=== PATIENT | male | born 1965 | race Caucasian/White ===

== ENCOUNTER 2024-01-01 22:35 | Inpatient (IN) ==
[2024-01-01 23:30] LABS: Alanine Aminotransferase 22 U/L (7-52); Albumin Globulin Ratio 1.3 (0.9-2); Albumin Level 4.4 gm/dl (3.4-5.0); Alkaline Phosphatase 84 U/L (34-104); Anion Gap 9 (3-11); BUN Creatinine Ratio 15.8 (10-20); Bilirubin,Total 0.5 mg/dl (0.2-1.0); Blood Urea Nitrogen 26 mg/dl (6-23); Calcium 8.7 mg/dl (8.6-10.3); Carbon Dioxide 26 mmol/L (21-32); Chloride 102 mmol/L (98-107); Est GFR (Non-African American) 45.7 ml/min; Globulin 3.3 gm/dl (2.5-4.0); Glucose 121 mg/dl (70-99(Fasting)); Sodium 137 mmol/L (136-145); Total Protein 7.7 gm/dl (6.0-8.3)
[2024-01-02 00:13] LABS: Hematocrit (blood only) 42.8 % (42.0-52.0); Hemoglobin 13.4 g/dl (14.0-18.0); Mean Corpuscular Hemoglobin 26.6 pg (25.0-34.0); Mean Corpuscular Hgb Conc 31.3 g/dL (32.0-36.0); Mean Corpuscular Volume 85.1 fL (80.0-100.0); Mean Platelet Volume 9.2 fL (9.4-12.4); Platelet Count 167 K/uL (130-400); RDW Coefficient of Variation 15.5 % (11.5-14.5); RDW Standard Deviation 47.5 fL (36.4-46.3); Red Blood Count 5.03 M/uL (4.70-6.10); White Blood Count 25.98 K/ul (4.8-10.8)
[2024-01-02 00:26] LABS: Potassium 4.5 mmol/L (3.5-5.1)
[2024-01-02 00:34] LABS: Lyme Screen Rflx Confirmation Positive (Negative); Troponin I High Sensitivity 7.8 pg/ml (0-20)
[2024-01-02 00:54] LABS: INR 1.1 (0.9-1.1); Partial Thromboplastin Time 27 Seconds (21-31); Prothrombin Time 11.4 Seconds (9.0-12.0)
[2024-01-02 01:00] LABS: Basophils # (auto) 0.06 K/uL (0.00-0.20); Basophils % (auto) 0.2 %; Eosinophils # (auto) 0.56 K/uL (0.00-0.50); Eosinophils % (auto) 2.2 %; Immature Granulocytes # (auto) 0.05 K/uL (0.01-0.20); Immature Granulocytes % (auto) 0.2 %; Lymphocytes # (auto) 18.73 K/uL (1.20-3.40); Lymphocytes % (auto) 72.1 %; Monocytes # (auto) 0.74 K/uL (0.11-0.59); Monocytes % (auto) 2.8 %; Neutrophils # (auto) 5.84 K/uL (1.40-6.50); Neutrophils % (auto) 22.5 %
[2024-01-02 01:08] LABS: Lyme Ab IgG 2nd Tier Confirm Positive (Negative); Lyme Ab IgM 2nd Tier Confirm Positive (Negative)
[2024-01-02] MEDS: KETOROLAC 30 MG/ML VIAL IV ONE (01:21)
--- NOTE | 2024-01-02 05:00 | Emergency Department Note ---
History of Present Illness General Chief complaint: Calf Pain Stated complaint: RT CALF PAIN, POSSIBLE BLOOD CLOT Time Seen by Provider: 01/01/24 22:58 History of Present Illness Maximum Pain Intensity: 10 This is a 58-year-old male presenting to the emergency department for evaluation of worsening right calf pain over the past few days. Patient does not have any significant recent travel history. 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 Jarquin locally. The patient lives in the [facility] and did have an ultrasound performed yesterday that did not show any significant findings. His pain seems to have increased and is currently rated a 10/10. He does not recall having distinct fevers or chills. He is able to ambulate. No chest pain, chest tightness, or shortness of breath. Home Medications Medication Instructions Recorded Confirmed Type aspirin 81 mg capsule 81 mg PO QAM 11/10/23 01/02/24 History atorvastatin 20 mg tablet (Lipitor) 40 mg PO HS 11/10/23 01/02/24 History clopidogrel 75 mg tablet (Plavix) 75 mg PO QAM 11/10/23 01/02/24 History empagliflozin 10 mg tablet 10 mg PO HS 11/10/23 01/02/24 History (Jardiance) fexofenadine 180 mg tablet 180 mg PO QAM 11/10/23 01/02/24 History (Radhika Allergy) furosemide 40 mg tablet (Lasix) 40 mg PO QAM 11/10/23 01/02/24 History gabapentin 300 mg tablet 300 mg PO BID 11/10/23 01/02/24 History semaglutide 1 mg/dose (4 mg/3 mL) 1 mg subcut Q7D 11/10/23 01/02/24 History subcutaneous pen injector (Ozempic) sirolimus 1 mg tablet (Rapamune) 1 mg PO BID 11/10/23 01/02/24 History spironolactone 25 mg tablet 25 mg PO HS 11/10/23 01/02/24 History cholecalciferol (vitamin D3) 50 50 mcg PO QAM 12/09/23 01/02/24 History mcg (2,000 unit) capsule (Vitamin D3) magnesium 500 mg tablet 500 mg PO QAM 12/09/23 01/02/24 History metoprolol succinate 25 mg 25 mg PO QAM 12/09/23 01/02/24 History tablet,extended release 24 hr sulfamethoxazole 400 1 tab PO QAM 12/09/23 01/02/24 History mg-trimethoprim 80 mg tablet oxycodone-acetaminophen 7.5 mg-325 1 tab PO Q8H PRN pain #7 tabs 12/22/23 01/02/24 Rx mg tablet (Percocet) phenazopyridine 200 mg tablet 200 mg PO Q8H PRN pain #10 tabs 12/22/23 01/02/24 Rx (Pyridium) tamsulosin 0.4 mg capsule 0.4 mg PO HS #30 caps 12/22/23 01/02/24 Rx Allergies Allergy/AdvReac Type Severity Reaction Status Date / Time codeine Allergy Hives Verified 01/01/24 22:43 Past Med/Surg History Problem List (Updated 01/02/24 @ 21:26 by Tru Ramirez PA-C) Bladder mass Lyme disease (Acute) Hematoma of right lower leg (Acute) CLL (chronic lymphocytic leukemia) dx ~2018 or earlier, just monitored with bloodwork; f/u dr. jarquin Epithelioid hemangioendothelioma of lung dx 08/2022, oral medication; f/u dr. jarquin Hyperlipidemia Diabetes Heart failure Arthritis Gross hematuria Hematuria Medical History History of anesthesia reaction during one of the bronchoscopes, felt like he couldn't breath while being put under the anesthesia Umbilical hernia no sx as of yet Thyroid nodule benign bx, monitored History of COVID-19 2019, [facility], transferred to [facility], not intubated; resolved Sleep apnea CPAP Hypertension Hyperlipidemia Diabetes mellitus, type 2 NIDDM Congestive heart failure Epithelioid hemangioendothelioma of lung dx 08/2022, oral medication; f/u dr. jarquin CLL (chronic lymphocytic leukemia) dx ~2019 or earlier, just monitored with bloodwork; f/u dr. jarquin Surgical History Hx of colonoscopy History of bronchoscopy x3 Call teeth extracted Hx of heart artery stent 01/2023, [facility] [place], x3 stents; f/u monie horton Hx of cardiac cath 01/2023, "legs swelling and abnormal testing," [facility] [place], x3 stents; f/u monie horton Family History Mother Diabetes Hypertension Ovarian cancer Father Hypertension Diabetes Head and neck cancer Social History Smoking Status: Never smoker Second Hand Exposure: Yes (hx); Do You Dip or Chew Tobacco: No; Hx Alcohol Use: No Hx Substance Use: No Preferred Language: Trinidadian Communication Ability: Effective Transportation Clerk Required: No Beliefs That Will Affect Care: None Current Living Situation: Spouse Feels Safe at Home: Yes Assistive Devices: Glasses Review of Systems A total of 10 systems reviewed and were otherwise negative Physical Exam Vital Signs Vital Signs - 24 hr 01/01/24 22:39 01/01/24 22:47 01/01/24 22:48 Temperature 36.7 C Temperature Source Temporal Artery Scan Pulse Rate 79 75 78 Pulse Rate from SpO2 Sensor 77 Respiratory Rate 18 17 Respiratory Effort / Characteristics Non-Labored Spontaneous Respiratory Depth Normal Respiratory Pattern Regular Blood Pressure 153/94 H 142/82 H Blood Pressure Mean 113 102 Pulse Oximetry 94 96 Oxygen Delivery Method Room Air Room Air Sepsis Recent Fever Within 48 Hours No Sepsis New/Unexplained Change in Mental Status N/A Sepsis Action Taken by Nursing No Action Required 01/01/24 23:30 01/02/24 00:12 01/02/24 00:39 Temperature Temperature Source Pulse Rate 75 80 81 Pulse Rate from SpO2 Sensor 77 82 81 Respiratory Rate 23 18 20 Respiratory Effort / Characteristics Respiratory Depth Respiratory Pattern Blood Pressure Blood Pressure Mean Pulse Oximetry 94 95 95 Oxygen Delivery Method Room Air Room Air Room Air Sepsis Recent Fever Within 48 Hours Sepsis New/Unexplained Change in Mental Status Sepsis Action Taken by Nursing 01/02/24 01:30 01/02/24 02:09 01/02/24 02:48 Temperature Temperature Source Pulse Rate 71 71 66 Pulse Rate from SpO2 Sensor 71 72 Respiratory Rate 18 19 Respiratory Effort / Characteristics Respiratory Depth Respiratory Pattern Blood Pressure 148/89 H 127/77 Blood Pressure Mean 111 93 Pulse Oximetry 96 95 Oxygen Delivery Method Room Air Sepsis Recent Fever Within 48 Hours Sepsis New/Unexplained Change in Mental Status Sepsis Action Taken by Nursing 01/02/24 03:00 01/02/24 03:30 01/02/24 04:00 Temperature Temperature Source Pulse Rate 65 67 65 Pulse Rate from SpO2 Sensor 65 64 66 Respiratory Rate 20 16 19 Respiratory Effort / Characteristics Respiratory Depth Respiratory Pattern Blood Pressure 115/80 117/73 133/79 Blood Pressure Mean 86 99 97 Pulse Oximetry 95 96 92 Oxygen Delivery Method Room Air Room Air Room Air Sepsis Recent Fever Within 48 Hours Sepsis New/Unexplained Change in Mental Status Sepsis Action Taken by Nursing 01/02/24 04:30 01/02/24 05:30 01/02/24 06:29 Temperature Temperature Source Pulse Rate 65 62 63 Pulse Rate from SpO2 Sensor 64 Respiratory Rate 18 17 Respiratory Effort / Characteristics Respiratory Depth Respiratory Pattern Blood Pressure 101/55 L 115/58 L Blood Pressure Mean 70 77 Pulse Oximetry 95 98 Oxygen Delivery Method Room Air Room Air Sepsis Recent Fever Within 48 Hours Sepsis New/Unexplained Change in Mental Status Sepsis Action Taken by Nursing 01/02/24 06:30 01/02/24 07:00 01/02/24 08:00 Temperature Temperature Source Pulse Rate 63 63 60 Pulse Rate from SpO2 Sensor 63 Respiratory Rate 17 18 Respiratory Effort / Characteristics Respiratory Depth Respiratory Pattern Blood Pressure 124/75 138/76 129/74 Blood Pressure Mean 91 92 97 Pulse Oximetry 93 95 95 Oxygen Delivery Method Room Air Room Air Room Air Sepsis Recent Fever Within 48 Hours Sepsis New/Unexplained Change in Mental Status Sepsis Action Taken by Nursing VITALS: Vitals are noted on the nurse's note and reviewed by myself. Vital signs stable. GENERAL: Well-developed, well-nourished, white male, who is in no acute distress and resting comfortably. Patient is cooperative with the examination. HEAD: Normocephalic atraumatic. NECK: Supple without nuchal rigidity. No lymphadenopathy. No thyromegaly. Cervical spine is nontender. HEART: Regular rate and rhythm without murmurs gallops or rubs. LUNGS: Clear to auscultation bilaterally without wheezes, rales or rhonchi. No retractions or accessory muscle use. ABDOMEN: Positive normal bowel sounds x 4. Soft, nontender, without masses or organomegaly. No guarding or rebound tenderness. MUSCULOSKELETAL: Erythema and edema noted primarily to the right calf which is roughly 25% larger than the left. Tenderness is posterior into the popliteal fossa. No palpable cords. Neurovascular status appears intact. Course Administered Medications Atorvastatin Calcium (Atorvastatin 20 Mg Tab) 20 mg PO HS LANNY Stop: 08/11/24 20:59 Last Admin: 01/02/24 20:09 Dose: 20 mg Documented By: ANTIONE Fexofenadine HCl (Fexofenadine Hcl 180 Mg Tab) [facility] [place] [facility] Stop: 02/01/24 08:59 Last Admin: 01/02/24 09:10 Dose: Not Given Documented By: MAURICE Furosemide (Furosemide 40 Mg Tab) [facility] [place] Stop: 02/01/24 08:59 Last Admin: 01/02/24 09:10 Dose: 40 mg Documented By: MAURICE Gabapentin (Gabapentin 300 Mg Cap) 300 mg PO BID LANNY Stop: 02/01/24 08:59 Last Admin: 01/02/24 20:09 Dose: 300 mg Documented By: Admin: 01/02/24 09:09 Dose: 300 mg Documented By: MAURICE Doxycycline Hyclate 100 mg/ (Dextrose) 100 mls @ 50 mls/hr IV Q12H LANNY Stop: 01/12/24 08:29 Last Admin: 01/02/24 20:08 Dose: 50 mls/hr Documented By: Infusion: 01/02/24 11:31 Dose: Infused Documented By: Admin: 01/02/24 09:42 Dose: 50 mls/hr Documented By: MAURICE Tamsulosin HCl (Tamsulosin Hcl 0.4 Mg Cap) 0.4 mg PO [facility] Stop: 02/01/24 20:59 Last Admin: 01/02/24 20:08 Dose: 0.4 mg Documented By: ANTIONE Vitamin D (Cholecalciferol 25 Mcg (1000 Units) Tab) 50 mcg [facility] [place] Stop: 02/01/24 08:59 Last Admin: 01/02/24 09:10 Dose: 50 mcg Documented By: MAURICE Discontinued Medications Ceftriaxone Sodium (Rocephin) 2,000 mg in 50 mls @ 100 mls/hr IV NOW STA Stop: 01/02/24 05:58 Last Infusion: 01/02/24 06:25 Dose: Infused Documented By: Admin: 01/02/24 05:56 Dose: 100 mls/hr Documented By: SRINI Vancomycin HCl 2,250 mg/ (Sodium Chloride) 545 mls @ 200 mls/hr IV NOW ONE Stop: 01/02/24 08:12 Last Infusion: 01/02/24 09:21 Dose: Infused Documented By: Admin: 01/02/24 06:24 Dose: 200 mls/hr Documented By: SRINI Ioversol (Optiray 320 100ml) 94 ml IV ONCE ONE Stop: 01/02/24 05:41 Last Admin: 01/02/24 05:41 Dose: 94 ml Documented By: JAMMIE Ketorolac Tromethamine (Ketorolac 30 Mg/Ml Vial) 30 mg IV NOW ONE Stop: 01/02/24 01:18 Last Admin: 01/02/24 01:21 Dose: 30 mg Documented By: SRINI Magnesium Oxide (Magnesium Oxide 400 Mg Tab) 500 mg PO QAM LANNY Stop: 02/01/24 08:59 Last Admin: 01/02/24 09:09 Dose: 500 mg Documented By: MAURICE Medical Decision Making Differential Diagnosis Differential diagnosis includes: Etiologies such as cellulitis, abscess, osteomyelitis, MRSA infection, DVT, necrotizing fasciitis, dermatitis, drug eruption, as well as others were entertained Laboratory Data 01/01/24 23:51 01/01/24 23:51 Lab Results 01/01/24 01/01/24 01/01/24 Range/Units 22:54 23:00 23:51 WBC Cancelled 25.98 H RBC Cancelled 5.03 Hgb Cancelled 13.4 L Hct Cancelled 42.8 MCV Cancelled 85.1 MCH Cancelled 26.6 MCHC Cancelled 31.3 L RDW Std Deviation Cancelled 47.5 H RDW Coeff of Merline Cancelled 15.5 H Plt Count Cancelled 167 MPV Cancelled 9.2 L Immature Gran % (Auto) Cancelled 0.2 Neut % (Auto) Cancelled 22.5 Lymph % (Auto) Cancelled 72.1 [place] % (Auto) Cancelled 2.8 Eos % (Auto) Cancelled 2.2 Baso % (Auto) Cancelled 0.2 Neut # (Auto) Cancelled 5.84 Lymph # (Auto) Cancelled 18.73 H [place] # (Auto) Cancelled 0.74 H Eos # (Auto) Cancelled 0.56 H Baso # (Auto) Cancelled 0.06 Immature Gran # (Auto) Cancelled 0.05 Absolute Nucleated RBC Cancelled Nucleated RBC % (auto) Cancelled Neutrophils % (Manual) Cancelled Band Neutrophils % Cancelled Lymphocytes % (Manual) Cancelled Prolymphocyte % Cancelled Reactive Lymphs % (Man) Cancelled Monocytes % (Manual) Cancelled Eosinophils % (Manual) Cancelled Basophils % (Manual) Cancelled Metamyelocytes % (Man) Cancelled Myelocytes % (Man) Cancelled Promyelocytes % (Man) Cancelled Blast Cells % (Manual) Cancelled Plasma Cell % (Manual) Cancelled Other Cells % Cancelled Nucleated RBC % Cancelled Neutrophils # (Manual) Cancelled Band Neutrophils # Cancelled Total Absolute Neuts Cancelled Lymphocytes # (Manual) Cancelled Prolymphocyte # Cancelled Reactive Lymphs # Cancelled Total Abs Lymphocytes Cancelled Monocytes # (Manual) Cancelled Eosinophils # (Manual) Cancelled Basophils # (Manual) Cancelled Metamyelocytes # (Man) Cancelled Myelocytes # (Manual) Cancelled Promyelocytes # (Man) Cancelled Blast Cells # (Man) Cancelled Plasma Cell # (Manual) Cancelled Other Cells # Cancelled Nucleated RBCs # (Man) Cancelled Hypersegmented Neuts Cancelled Hyposegmented Neuts Cancelled Hypogranular Neuts Cancelled Large Granular Lymphs Cancelled # Lrg Granular Lymphs Cancelled Hairy Cells Cancelled Smudge Cells Cancelled Toxic Granulation Cancelled Toxic Vacuolation Cancelled Dohle Bodies Cancelled Cooper Rods Cancelled Platelet Estimate Cancelled Hypogranular Platelets Cancelled Giant Platelets Cancelled Platelet Satelliting Cancelled RBC Morphology Cancelled Polychromasia Cancelled Hypochromasia Cancelled Poikilocytosis Cancelled Basophilic Stippling Cancelled Anisocytosis Cancelled Microcytosis Cancelled Macrocytosis Cancelled Spherocytes Cancelled Pappenheimer Bodies Cancelled Sickle Cells Cancelled Target Cells Cancelled Tear Drop Cells Cancelled Ovalocytes Cancelled Stomatocytes Cancelled [place] Bodies Cancelled Echinocytes Cancelled Acanthocytes (Spur) Cancelled Rouleaux Cancelled RBC Agglutinates Cancelled Schistocytes Cancelled Sezary Cell Cancelled PT Cancelled 11.4 INR Cancelled 1.1 APTT Cancelled 27 PTT Ratio Cancelled 1.0 Sodium 137 (136-145) mmol/L Potassium TNP 4.5 Chloride 102 (98-107) mmol/L Carbon Dioxide 26 (21-32) mmol/L Anion Gap 9 (3-11) BUN 26 H (6-23) mg/dl Creatinine 1.65 H (0.6-1.4) mg/dl Est Cr Clr Drug Dosing Not Reportable Est GFR ( Amer) 53.0 ml/min Est GFR (Non-Af Amer) 45.7 ml/min BUN/Creatinine Ratio 15.8 (10-20) Glucose 121 H (70-99(Fasting)) mg/dl Lactate (0.4-2.0) mmol/L Calcium 8.7 (8.6-10.3) mg/dl Total Bilirubin 0.5 (0.2-1.0) mg/dl AST TNP 20 ALT 22 (7-52) U/L Alkaline Phosphatase 84 (34-104) U/L Troponin I High Sens 7.8 (0-20) pg/ml Total Protein 7.7 (6.0-8.3) gm/dl Albumin 4.4 (3.4-5.0) gm/dl Globulin 3.3 (2.5-4.0) gm/dl Albumin/Globulin Ratio 1.3 (0.9-2) Lyme Disease Screen Positive H (Negative) Lyme Tier 2 IgG Confirm Positive H (Negative) Lyme Tier 2 IgM Confirm Positive H (Negative) Blood Parasites ID Cancelled 01/02/24 Range/Units 05:06 WBC RBC Hgb Hct MCV MCH MCHC RDW Std Deviation RDW Coeff of [place] Plt Count MPV Immature Gran % (Auto) Neut % (Auto) Lymph % (Auto) [place] % (Auto) Eos % (Auto) Baso % (Auto) Neut # (Auto) Lymph # (Auto) [place] # (Auto) Eos # (Auto) Baso # (Auto) Immature Gran # (Auto) Absolute Nucleated RBC Nucleated RBC % (auto) Neutrophils % (Manual) Band Neutrophils % Lymphocytes % (Manual) Prolymphocyte % Reactive Lymphs % (Man) Monocytes % (Manual) Eosinophils % (Manual) Basophils % (Manual) Metamyelocytes % (Man) Myelocytes % (Man) Promyelocytes % (Man) Blast Cells % (Manual) Plasma Cell % (Manual) Other Cells % Nucleated RBC % Neutrophils # (Manual) Band Neutrophils # Total Absolute Neuts Lymphocytes # (Manual) Prolymphocyte # Reactive Lymphs # Total Abs Lymphocytes Monocytes # (Manual) Eosinophils # (Manual) Basophils # (Manual) Metamyelocytes # (Man) Myelocytes # (Manual) Promyelocytes # (Man) Blast Cells # (Man) Plasma Cell # (Manual) Other Cells # Nucleated RBCs # (Man) Hypersegmented Neuts Hyposegmented Neuts Hypogranular Neuts Large Granular Lymphs # Lrg Granular Lymphs Hairy Cells Smudge Cells Toxic Granulation Toxic Vacuolation Dohle Bodies Cooper Rods Platelet Estimate Hypogranular Platelets Giant Platelets Platelet Satelliting RBC Morphology Polychromasia Hypochromasia Poikilocytosis Basophilic Stippling Anisocytosis Microcytosis Macrocytosis Spherocytes Pappenheimer Bodies Sickle Cells Target Cells Tear Drop Cells Ovalocytes Stomatocytes [place] Bodies Echinocytes Acanthocytes (Spur) Rouleaux RBC Agglutinates Schistocytes Sezary Cell PT INR APTT PTT Ratio Sodium (136-145) mmol/L Potassium Chloride (98-107) mmol/L Carbon Dioxide (21-32) mmol/L Anion Gap (3-11) BUN (6-23) mg/dl Creatinine (0.6-1.4) mg/dl Est Cr Clr Drug Dosing Est GFR ( Amer) ml/min Est GFR (Non-Af Amer) ml/min BUN/Creatinine Ratio (10-20) Glucose (70-99(Fasting)) mg/dl Lactate 1.2 (0.4-2.0) mmol/L Calcium (8.6-10.3) mg/dl Total Bilirubin (0.2-1.0) mg/dl AST ALT (7-52) U/L Alkaline Phosphatase (34-104) U/L Troponin I High Sens (0-20) pg/ml Total Protein (6.0-8.3) gm/dl Albumin (3.4-5.0) gm/dl Globulin (2.5-4.0) gm/dl Albumin/Globulin Ratio (0.9-2) Lyme Disease Screen (Negative) Lyme Tier 2 IgG Confirm (Negative) Lyme Tier 2 IgM Confirm (Negative) Blood Parasites ID Imaging Data Radiologist's Impression: Venous Doppler Study 01/02/24 00:00 Exam(s): US VENOUS RIGHT LOWER EXTREMITY EXAM: US Duplex Right Lower Extremity Veins CLINICAL HISTORY: Evaluate for Deep vein thrombosis. TECHNIQUE: Real-time duplex ultrasound scan of the right lower extremity veins integrating B-mode two-dimensional vascular structure, Doppler spectral analysis, color flow Doppler imaging and compression. COMPARISON: No relevant prior studies available. FINDINGS: Deep veins: Unremarkable. No Deep vein thrombosis in the visualized common femoral, femoral, proximal deep femoral or popliteal veins. The veins demonstrate normal color flow, are normally compressible, with normal phasic flow and/or augmentation response. Superficial veins: Unremarkable. No thrombus in the visualized great saphenous vein. Soft tissues: Nonspecific subcutaneous edema. No popliteal cyst. There is a 10.9 x 7.4 x 2.5 Cm mass of the posterior right calf with internal Doppler flow. IMPRESSION: 1. No deep vein thrombosis of the right lower extremity. 2. Nonspecific subcutaneous edema. 3. There is a 10.9 x 7.4 x 2.5 Cm mass of the posterior right calf with internal Doppler flow. This is indeterminate. Recommend further evaluation with MRI. Electronically signed by: Leigha Yuen MD 01/02/24 05:[address] 01/02/24 04:48 Exam(s): CT EXTREMITY RIGHT LOWER With Contrast IV Amt: 94 ml opti 320 EXAM: CT Right Lower Extremity With Intravenous Contrast CLINICAL HISTORY: eval for possible abscess vs other. TECHNIQUE: Axial computed tomography images of the right lower extremity with intravenous contrast. CTDI is 24.91 mGy and DLP is 1219.48 mGy-cm. Automated exposure control was utilized for the study. A dose lowering technique was utilized adhering to the principles of ALARA. CONTRAST: Patient received 94 ml opti 320 of IV contrast COMPARISON: DVT scan from earlier today. FINDINGS: Bones/joints: Unremarkable. No acute fracture. No dislocation. Soft tissues: There is a heterogeneous 3.4 x 2.2 x 14.3 cm lesion of the superior aspect of the medial head of the gastrocnemius muscle. Nonspecific subcutaneous edema. IMPRESSION: 1. There is a heterogeneous 3.4 x 2.2 x 14.3 cm lesion of the superior aspect of the medial head of the gastrocnemius muscle. This favors the appearance of a hematoma and there appears to a small amount of active bleeding. Recommend follow-up clinical exam and/or imaging to ensure resolution and exclude underlying mass. 2. Nonspecific subcutaneous edema. Electronically signed by: Leigha Yuen MD 01/02/24 06:35 AM MDM Narrative Physical exam and history were performed. Nursing notes, EMR, and Medication List were personally reviewed. No social concerns were identified as barriers to patients care. Patient appears to have pain in his right lower leg bringing him to the ER. His calf is quite large when compared to the left side. It is reddened and warm. IV access was established and labs were obtained. Patient was sent to ultrasound for imaging. Patient's blood work is as above and was reviewed. He does have a markedly elevated white blood cell count of 25,000. This does seem fairly chronic for him and is difficult to determine if this is related to his calf complaint or his CLL. He does not have significant anemia, bandemia, or gross electrolyte imbalance. INR is 1.1. He is not on blood thinners, but is on Plavix. Lyme testing is POSITIVE. Ultrasound was performed and independently reviewed by myself and radiology. There is concern as the patient has fluid in the calf, and it is difficult to determine the stability of the fluid. He does not have injury or trauma and is not on blood thinners. Blood is certainly a possibility, but so his infection. Out of concern for both patient was sent to CT scan. CT scan was also reviewed by myself and radiology, and seems to favor blood over infection at this time. Patient does have a negative lactic with blood cultures pending. I did provide him a dose of vancomycin and IV Rocephin here in the ER. Overall the patient appears to have several processes worsening the past day. The patient will require escalation of care. Case was discussed with the on-call hospitalist team who agreed to evaluate the patient here in the ER. Please see their dictation for further patient course, plan, disposition. The chart was completed utilizing [employer] Speech Voice Recognition Software. Grammatical errors, random word insertions, pronoun errors, and incomplete sentences are an occasional consequence of this system due to software limitations, ambient noise, and hardware issues. Any formal questions or concerns about the content, text, or information contained within the body of this dictation should be directly addressed to the provider for clarification. . Impression & Plan Hematoma of right lower leg, Lyme disease Discharge Plan Visit Data Chief Complaint: Calf Pain Stated Complaint: RT CALF PAIN, POSSIBLE BLOOD CLOT ED Provider: Cruz Ramirez ED Midlevel Provider: Tru Ramirez Discharge Problem: Hematoma of right lower leg, Lyme disease Patient Disposition: Admitted As Inpatient Discharge Instructions Interventions: ED Discharge Assessment Last Done: 01/02/24 11:50
--- NOTE | 2024-01-02 05:07 | Ultrasound Report ---
Exam(s): US VENOUS RIGHT LOWER EXTREMITY EXAM: US Duplex Right Lower Extremity Veins CLINICAL HISTORY: Evaluate for Deep vein thrombosis. TECHNIQUE: Real-time duplex ultrasound scan of the right lower extremity veins integrating B-mode two-dimensional vascular structure, Doppler spectral analysis, color flow Doppler imaging and compression. COMPARISON: No relevant prior studies available. FINDINGS: Deep veins: Unremarkable. No Deep vein thrombosis in the visualized common femoral, femoral, proximal deep femoral or popliteal veins. The veins demonstrate normal color flow, are normally compressible, with normal phasic flow and/or augmentation response. Superficial veins: Unremarkable. No thrombus in the visualized great saphenous vein. Soft tissues: Nonspecific subcutaneous edema. No popliteal cyst. There is a 10.9 x 7.4 x 2.5 Cm mass of the posterior right calf with internal Doppler flow. IMPRESSION: 1. No deep vein thrombosis of the right lower extremity. 2. Nonspecific subcutaneous edema. 3. There is a 10.9 x 7.4 x 2.5 Cm mass of the posterior right calf with internal Doppler flow. This is indeterminate. Recommend further evaluation with MRI. Electronically signed by: Leigha Yuen MD 01/02/24 05:07 AM
[2024-01-02] MEDS ORDERED: VANCOMYCIN CONSULT ACTIVE PRN (05:29)
[2024-01-02] MEDS: OPTIRAY 320 100ml IV ONE (05:41)
[2024-01-02] MEDS: cefTRIAXone SODIUM 2,000 MG/50 ML BAG IV STA (05:56)
[2024-01-02] MEDS: VANCOMYCIN HCL 2,250 MG in SODIUM CHLORIDE 0.9% 500 ML IV ONE (06:24)
--- NOTE | 2024-01-02 06:36 | CT Scan Report ---
Exam(s): CT EXTREMITY RIGHT LOWER With Contrast IV Amt: 94 ml opti 320 EXAM: CT Right Lower Extremity With Intravenous Contrast CLINICAL HISTORY: eval for possible abscess vs other. TECHNIQUE: Axial computed tomography images of the right lower extremity with intravenous contrast. CTDI is 24.91 mGy and DLP is 1219.48 mGy-cm. Automated exposure control was utilized for the study. A dose lowering technique was utilized adhering to the principles of ALARA. CONTRAST: Patient received 94 ml opti 320 of IV contrast COMPARISON: DVT scan from earlier today. FINDINGS: Bones/joints: Unremarkable. No acute fracture. No dislocation. Soft tissues: There is a heterogeneous 3.4 x 2.2 x 14.3 cm lesion of the superior aspect of the medial head of the gastrocnemius muscle. Nonspecific subcutaneous edema. IMPRESSION: 1. There is a heterogeneous 3.4 x 2.2 x 14.3 cm lesion of the superior aspect of the medial head of the gastrocnemius muscle. This favors the appearance of a hematoma and there appears to a small amount of active bleeding. Recommend follow-up clinical exam and/or imaging to ensure resolution and exclude underlying mass. 2. Nonspecific subcutaneous edema. Electronically signed by: Leigha Yuen MD 01/02/24 06:35 AM
[2024-01-02] MEDS ORDERED: oxyCODONE/APAP 7.5/325MG TAB PO PRN (08:20)
[2024-01-02] MEDS: GABAPENTIN 300 MG CAP PO SCH (09:09)
[2024-01-02] MEDS: MAGNESIUM OXIDE 400 MG TAB PO SCH (09:09)
[2024-01-02] MEDS: FUROSEMIDE 40 MG TAB PO SCH (09:10)
[2024-01-02] MEDS: CHOLECALCIFEROL 25 MCG (1000 UNITS) TAB PO SCH (09:10)
[2024-01-02] MEDS: FEXOFENADINE HCL 180 MG TAB PO SCH (09:10)
[2024-01-02] MEDS: DOXYCYCLINE HYCLATE 100 MG in DEXTROSE 5% MINI-B 100 ML IV SCH (09:42)
--- NOTE | 2024-01-02 10:49 | History & Physical Report ---
Date of Service January 02, 2024 Assessment & Plan (1) Hematoma of right lower leg: Plan: Patient presents to the hospital with right calf pain was started 3 days prior to presentation CT showed evidence of a hematoma with possible active bleed. Will monitor for worsening pain, no evidence of compartment syndrome for now Will repeat CT tomorrow Monitor H&H (2) CLL (chronic lymphocytic leukemia): Plan: Incidentally found on blood work Continue to monitor for now Currently on no treatment (3) Lyme disease: Plan: Patient admits that he usually [facility] However denies any knowledge of recent tick bite Lyme disease positive Started on doxycycline IV Transition to p.o. upon discharge (4) Epithelioid hemangioendothelioma of lung: Plan: Follows up with Dr. Morris On sirolimus, however will hold on account of worsening renal function (5) Bladder mass: Plan: Underwent TURBT a few days ago Continue to monitor Plan Admit to [facility] with telemetry Full code Admission and Anticipated Discharge Date Admission Date: January 02, 2024 History of Present Illness Chief Complaint: Right calf pain Primary Care Provider: Stanford Farnsworth PA-C This is a 58-year-old male with a history of CLL, epithelioid hemangioendothelioma, bladder tumor status post TURBT, who came to the emergency department today on account of worsening right calf pain. According to the patient, the pain started about 3 days prior to presentation. He presented to a local walk-in clinic where they did an ultrasound which did not show any c oncerning changes. The pain persisted now with worsening swelling so he came to the emergency department for further evaluation. Here in the emergency department if venous Doppler was repeated we did not show any evidence of DVT but only showed some nonspecific subcutaneous edema and did 10 x 7 x 2 cm mass in the posterior right calf. This prompted a CT scan with contrast which now showed heterogeneous 3 x 2 x 14 cm lesion in the superior aspect of the medial head of the gastrocnemius favoring hematoma. There also appeared to be a small amount of active bleeding. His calf was wrapped up by the emergency department And he will be admitted to the hospital further management. Of note, his Lyme was also found to be positive. Allergies Allergy/AdvReac Type Severity Reaction Status Date / Time codeine Allergy Hives Verified 01/01/24 22:43 Home Medications Medication Instructions Recorded Confirmed Type aspirin 81 mg capsule 81 mg PO QAM 11/10/23 01/02/24 History atorvastatin 20 mg tablet (Lipitor) 40 mg PO HS 11/10/23 01/02/24 History clopidogrel 75 mg tablet (Plavix) 75 mg PO QAM 11/10/23 01/02/24 History empagliflozin 10 mg tablet 10 mg PO HS 11/10/23 01/02/24 History (Jardiance) fexofenadine 180 mg tablet 180 mg PO QAM 11/10/23 01/02/24 History (Radhika Allergy) furosemide 40 mg tablet (Lasix) 40 mg PO QAM 11/10/23 01/02/24 History gabapentin 300 mg tablet 300 mg PO BID 11/10/23 01/02/24 History semaglutide 1 mg/dose (4 mg/3 mL) 1 mg subcut Q7D 11/10/23 01/02/24 History subcutaneous pen injector (Ozempic) sirolimus 1 mg tablet (Rapamune) 1 mg PO BID 11/10/23 01/02/24 History spironolactone 25 mg tablet 25 mg PO HS 11/10/23 01/02/24 History cholecalciferol (vitamin D3) 50 50 mcg PO QAM 12/09/23 01/02/24 History mcg (2,000 unit) capsule (Vitamin D3) magnesium 500 mg tablet 500 mg PO QAM 12/09/23 01/02/24 History metoprolol succinate 25 mg 25 mg PO QAM 12/09/23 01/02/24 History tablet,extended release 24 hr sulfamethoxazole 400 1 tab PO QAM 12/09/23 01/02/24 History mg-trimethoprim 80 mg tablet oxycodone-acetaminophen 7.5 mg-325 1 tab PO Q8H PRN pain #7 tabs 12/22/23 01/02/24 Rx mg tablet (Percocet) phenazopyridine 200 mg tablet 200 mg PO Q8H PRN pain #10 tabs 12/22/23 01/02/24 Rx (Pyridium) tamsulosin 0.4 mg capsule 0.4 mg PO HS #30 caps 12/22/23 01/02/24 Rx Past Med/Surg History Problem List (Updated 01/02/24 @ 10:47 by Doyle Sosa MD) Bladder mass Lyme disease Hematoma of right lower leg CLL (chronic lymphocytic leukemia) dx ~2019 or earlier, just monitored with bloodwork; f/u dr. chappell Epithelioid hemangioendothelioma of lung dx 08/2022, oral medication; f/u dr. chappell Hyperlipidemia Diabetes Heart failure Arthritis Gross hematuria Hematuria Medical History History of anesthesia reaction during one of the bronchoscopes, felt like he couldn't breath while being put under the anesthesia Umbilical hernia no sx as of yet Thyroid nodule benign bx, monitored History of COVID-19 2019, ph [facility], transferred to [facility], not intubated; resolved Sleep apnea CPAP Hypertension Hyperlipidemia Diabetes mellitus, type 2 NIDDM Congestive heart failure Epithelioid hemangioendothelioma of lung dx 08/2022, oral medication; f/u dr. chappell CLL (chronic lymphocytic leukemia) dx ~2019 or earlier, just monitored with bloodwork; f/u dr. chappell Surgical History Hx of colonoscopy History of bronchoscopy x3 [place] teeth extracted Hx of heart artery stent 01/2023, [facility] [place], x3 stents; f/u monie horton Hx of cardiac cath 01/2023, "legs swelling and abnormal testing," [facility] [place], x3 stents; f/u monie horton Family History Mother Diabetes Hypertension Ovarian cancer Father Hypertension Diabetes Head and neck cancer Social History Smoking Status: Never smoker Second Hand Exposure: Yes (hx); Do You Dip or Chew Tobacco: No; Hx Alcohol Use: No Hx Substance Use: No Preferred Language: [place] Communication Ability: Effective Limnology Teacher Required: No Beliefs That Will Affect Care: None Current Living Situation: Spouse Feels Safe at Home: Yes Safety Concerns: Feels Safe At This Time Assistive Devices: Glasses Review of Systems Review of Systems: All systems reviewed are negative, apart from the ones contained in the history. Physical Exam Physical Exam: The patient is awake, alert and oriented 3, well developed and well nourished, normocephalic and atraumatic, lying in bed and in no acute distress. HEENT--PERRL, EOMI, mucous membranes and oropharynx mildly dry Neck--supple. No JVD. No bruits. Thyroid normal, trachea midline, no adenopathy. Heart--normal S1 and S2. No murmurs, rubs or gallops. Lungs--clear bilaterally, no respiratory distress, no accessory muscle use. Abdomen--normal bowel sounds and soft. Extremities--no cyanosis or clubbing. No edema.Right calf tenderness and swelling Dermatologic--normal skin turgor, normal color, no abnormal lymph nodes, no rash. Neurologic--cranial nerves II through XII grossly intact. Rheumatologic--normal range of motion. Psychiatric--normal affect. Results & Data Results & Data Vital Signs (Past 12 Hours) Vital Signs Pulse Resp BP Pulse Ox O2 Del Method 01/02/24 09:01 67 16 129/66 96 Room Air 01/02/24 08:30 59 L 18 135/82 95 Room Air 01/02/24 08:00 60 18 129/74 95 Room Air 01/02/24 07:00 63 138/76 95 Room Air 01/02/24 06:30 63 17 124/75 93 Room Air 01/02/24 06:29 63 01/02/24 05:30 62 17 115/58 L 98 Room Air 01/02/24 04:30 65 18 101/55 L 95 Room Air 01/02/24 04:00 65 19 133/79 92 Room Air 01/02/24 03:30 67 16 117/73 96 Room Air 01/02/24 03:00 65 20 115/80 95 Room Air 01/02/24 02:48 66 01/02/24 02:09 71 19 127/77 95 Room Air 01/02/24 01:30 71 18 148/89 H 96 01/02/24 00:39 81 20 95 Room Air 01/02/24 00:12 80 18 95 Room Air 01/01/24 23:30 75 23 94 Room Air 01/01/24 22:48 78 17 142/82 H 96 Room Air 01/01/24 22:47 75 PG Care Time/CCT Total # of Minutes Spent Total Time Spent with Patient: Total time spent is greater than 50% in coordination of care (as documented) at patient's floor/unit and/or counseling patient: Coding Level of Care Code 79334 INT INP/OBS CARE MIN Diagnoses Hematoma of right lower leg S80.11XA CLL (chronic lymphocytic leukemia) C91.10 Lyme disease A69.20 Epithelioid hemangioendothelioma of lung D38.1 Bladder mass N32.89 Time Spent (min) 75
--- NOTE | 2024-01-02 12:52 | Electrocardiogram Report ---
Test Reason : Blood Pressure : / mmHG Vent. Rate : 075 BPM Atrial Rate : 075 BPM P-R Int : 210 ms QRS Dur : 106 ms QT Int : 402 ms P-R-T Axes : 043 -31 039 degrees QTc Int : 448 ms Sinus rhythm with 1st degree A-V block Left axis deviation Abnormal ECG No previous ECGs available Confirmed by Gustavo Cuevas ([id number]) on 01/02/2024 12:52:00 PM Referred By: REFERRED SELF Confirmed By:Narciso Cuevas
[2024-01-02] MEDS: TAMSULOSIN HCL 0.4 MG CAP PO SCH (20:08)
[2024-01-02] MEDS: ATORVASTATIN 20 MG TAB PO SCH (20:09)
[2024-01-03 02:19] LABS: A calco-baum cmplx NotReported Not Detected (NotDetected); Bact fragilis Not Reported Not Detected (NotDetected); Blood Culture Id Panel See PCR Comment (NotDetected); C auris Not Reported Not Detected (NotDetected); Calbicans Not Reported Not Detected (NotDetected); Candida glabrata Not Reported Not Detected (NotDetected); Candida krusei Not Reported Not Detected (NotDetected); Cneoformans/gatti Not Reported Not Detected (NotDetected); Cparapsilosis Not Reported Not Detected (NotDetected); E cloacae compx Not Reported Not Detected (NotDetected); Efaecalis Not Reported Not Detected (NotDetected); Efaecium Not Reported Not Detected (NotDetected); Enterobacterales Not Reported Not Detected (NotDetected); Escherichia coli Not Reported Not Detected (NotDetected); H influenzae Not Reported Not Detected (NotDetected); K aerogenes Not Reported Not Detected (NotDetected); Koxytoca Not Reported Not Detected (NotDetected); Kpneumoniae grp Not Reported Not Detected (NotDetected); Lmonocyt Not Reported Not Detected (NotDetected); N meningitidis Not Reported Not Detected (NotDetected); P aeruginosa Not Reported Not Detected (NotDetected); Proteus spp Not Reported Not Detected (NotDetected); Salmonella spp Not Reported Not Detected (NotDetected); Staph lugdunensis Not Reported Not Detected (NotDetected); Staphaureus Not Reported Not Detected (NotDetected); Staphepi Not Reported DETECTED (NotDetected); Staphylococcus spp. DETECTED (NotDetected); Stenmaltophilia Not Reported Not Detected (NotDetected); Strep agal(GrpB) Not Reported Not Detected (NotDetected); Strep pneum Not Reported Not Detected (NotDetected); Strep pyog (GrpA) Not Reported Not Detected (NotDetected); Strep spp Not Reported Not Detected (NotDetected)
[2024-01-03 02:33] LABS: Staph spp. Not Reported DETECTED (NotDetected); Staphylococcus epidermidis DETECTED (NotDetected); mecAC Resistant Gene DETECTED (NotDetected)
[2024-01-03] MEDS ORDERED: VANCOMYCIN CONSULT ACTIVE PRN (02:47)
--- NOTE | 2024-01-03 02:54 | Communication Note ---
Date of Service: January 03, 2024 Notified by nursing ~2:30AM of positive blood cultures. Pt growing gram pos cocci in 1/4 bottles (in <24 hrs). PCR showing staph species/staph epidermidis w / methicillin resistance gene. Although this could represent a contaminant, pt has multiple reasons making him immunocompromised (CLL, epithelioid hemangioendothelioma) so will start vancomycin for coverage. Recommend waiting for further growth of other culture bottles to assess whether this represents contamination or true infection and thus whether antibiotics should be continued or not. Resident Activity Tracking Resident Involvement: Resident Care Provided Care Provided: Adult Hospital Medicine
[2024-01-03] MEDS: VANCOMYCIN HCL 1,750 MG in SODIUM CHLORIDE 0.9% 500 ML IV SCH (03:16)
[2024-01-03 04:17] LABS: Hematocrit (blood only) 38.7 % (42.0-52.0); Hemoglobin 12.2 g/dl (14.0-18.0); Mean Corpuscular Hemoglobin 26.9 pg (25.0-34.0); Mean Corpuscular Hgb Conc 31.5 g/dL (32.0-36.0); Mean Corpuscular Volume 85.4 fL (80.0-100.0); Mean Platelet Volume 9.7 fL (9.4-12.4); Platelet Count 158 K/uL (130-400); RDW Coefficient of Variation 15.3 % (11.5-14.5); RDW Standard Deviation 47.3 fL (36.4-46.3); Red Blood Count 4.53 M/uL (4.70-6.10); White Blood Count 18.49 K/ul (4.8-10.8)
[2024-01-03 04:34] LABS: Est GFR (African American) 52.6 ml/min; Potassium 4.5 mmol/L (3.5-5.1)
[2024-01-03 04:35] LABS: BUN Creatinine Ratio 14.5 (10-20); Calcium 8.3 mg/dl (8.6-10.3); Creatinine Clr Calc Pharmacy 60.5 ml/min; Est GFR (Non-African American) 45.4 ml/min
[2024-01-03] MEDS: MAGNESIUM OXIDE 400 MG TAB PO SCH (08:28)
--- NOTE | 2024-01-03 11:15 | Pharmacy Report ---
Pharmacy PK ABX Note - Date of Service January 03, 2024 - Assessment and Plan Assessment 58 year old M with PMH including CLL, epitheloid hemangioendothelioma, bladder tumor post TURBT receiving vancomcyin for treatment of MRSE 2/4 (same set) in blood cultures. Possible contaminant- monitoring second set for now, negative at 24 hours. Also on doxycycline for positive Lyme screen. Initial WBC 25.98 downtrending, (however in setting of chronic elevation, CLL). Afebrile. Plan Vancomycin * Loading dose: 2250 mg IV x 1 * Maintenance dose: 1750 mg IV every 24 hours * Regimen is predicted to achieve target AUC/SHERICE of 400-600 mg/L.hr * Random level to be ordered if continued > 48 hours Pharmacy will continue to follow and will adjust dose/frequency as necessary. Thank you. Pharmacy has transitioned to AUC monitoring for vancomycin. AUC/SHERICE is the pr eferred PK/PD target and is associated with decreased risk of nephrotoxicity compared to traditional trough targets.
--- NOTE | 2024-01-03 11:37 | Hospitalist Progress Note ---
Date of Service January 03, 2024 Assessment & Plan (1) Hematoma of right lower leg: Plan: Patient presents to the hospital with right calf pain was started 3 days prior to presentation On admission,CT showed evidence of a hematoma with possible active bleed. Repeat CT scan has been ordered today, results pending Continue to monitor H&H which has been stable (2) Bacteremia: Plan: 2 out of 4 bottles growing gram-positive's in clusters Empirically started on IV vancomycin Will obtain 2D echo (3) CLL (chronic lymphocytic leukemia): Plan: Incidentally found on blood work Continue to monitor for now Currently on no treatment (4) Lyme disease: Plan: Patient admits that he usually goes to the [facility] However denies any knowledge of recent tick bite Lyme disease positive Started on doxycycline IV Transition to p.o. upon discharge (5) Epithelioid hemangioendothelioma of lung: Plan: Follows up with Dr. Jarquin On sirolimus, however will hold on account of worsening renal function (6) Bladder mass: Plan: Underwent TURBT a few days ago Continue to monitor Plan Continue to monitor, await full characterization of blood cultures Full code Admission and Anticipated Discharge Date Admission Date: January 02, 2024 Subjective Patient seen and examined, states his pain is much better, awaiting repeat CT Review of Systems Review of Systems: All systems reviewed are negative, apart from the ones contained in the history. Physical Exam Physical Exam: The patient is awake, alert and oriented 3, well developed and well nourished, normocephalic and atraumatic, lying in bed and in no acute distress. HEENT--PERRL, EOMI, mucous membranes and oropharynx mildly dry Neck--supple. No JVD. No bruits. Thyroid normal, trachea midline, no adenopathy. Heart--normal S1 and S2. No murmurs, rubs or gallops. Lungs--clear bilaterally, no respiratory distress, no accessory muscle use. Abdomen--normal bowel sounds and soft. Extremities--no cyanosis or clubbing. No edema.Right calf tenderness and swelling Dermatologic--normal skin turgor, normal color, no abnormal lymph nodes, no rash. Neurologic--cranial nerves II through XII grossly intact. Rheumatologic--normal range of motion. Psychiatric--normal affect. Results & Data Results & Data Vital Signs (Past 12 Hours) Vital Signs Temp Pulse Pulse Pulse Resp BP BP 07/13/24 11:20 97.9 F 73 18 123/76 01/03/24 07:37 82 01/03/24 07:20 97.5 F L 72 18 110/69 01/03/24 03:39 97.5 F L 72 20 122/70 Pulse Ox O2 Del Method 01/03/24 11:20 95 Room Air 01/03/24 07:37 01/03/24 07:20 94 Room Air 01/03/24 03:39 96 CPAP PG Care Time/CCT Total # of Minutes Spent Total Time Spent with Patient: Total time spent is greater than 50% in coordination of care (as documented) at patient's floor/unit and/or counseling patient: Coding Level of Care Code 11970 SUB INP/OBS CARE 2/35MIN Diagnoses Hematoma of right lower leg S80.11XA Bacteremia R78.81 CLL (chronic lymphocytic leukemia) C91.10 Lyme disease A69.20 Epithelioid hemangioendothelioma of lung D38.1 Bladder mass N32.89 Time Spent (min) 35
--- NOTE | 2024-01-03 17:11 | CT Scan Report ---
CT SCAN OF THE RIGHT TIBIA AND FIBULA WITHOUT IV CONTRAST CLINICAL HISTORY: Follow-up hematoma. COMPARISON STUDY: CT scan of the right tibia and fibula dated 01/02/2024. TECHNIQUE: CT scan of the right tibia and fibula is performed from the distal femur to the ankle. Joann ges are reviewed in the axial, sagittal, and coronal planes. IV contrast was not administered for thi s examination. A dose lowering technique was utilized adhering to the principles of ALARA. CT DOSE: 1169.25 mGy.cm FINDINGS: The skeletal structures are osteopenic. There is no evidence of right tibial or fibular fra cture. The knee and ankle joints are grossly maintained. There is a moderate knee joint effusion. No osteochondral defect is seen in the talar dome. Soft tissue edema and subcutaneous fluid is present t hroughout the left calf. Again seen is an intramuscular hematoma within the medial head of the gastro cnemius muscle. This is best seen on axial image #237 and measures approximately 16 x 6 x 2 cm in agg regate dimension. This is similar in appearance to yesterday. There is atherosclerotic calcification of the regional arteries. There is mild generalized atrophy of the regional musculature. The Achilles tendon is intact as imaged. IMPRESSION: 1. No acute bony abnormality is seen involving the left tibia or fibula. 2. An intramuscular hematoma is again seen within the medial head of the gastrocnemius muscle. This h as not appreciably changed from yesterday. ACT 112: Negative or not required by law. Dictated: 01/03/2024 9:16 AM Transcribed: 01/03/2024 9:48 AM Kobi [id number] MICH_Deacon [id number] Electronically signed by: Elder Navarrete M.D. 01/03/2024 5:09 PM
[2024-01-03 21:34] LABS: Hemoglobin 12.8 g/dl (14.0-18.0); Mean Corpuscular Hemoglobin 26.6 pg (25.0-34.0); Mean Corpuscular Hgb Conc 31.2 g/dL (32.0-36.0); Mean Corpuscular Volume 85.1 fL (80.0-100.0); Mean Platelet Volume 9.3 fL (9.4-12.4); Platelet Count 179 K/uL (130-400); RDW Coefficient of Variation 15.3 % (11.5-14.5); RDW Standard Deviation 46.9 fL (36.4-46.3); Red Blood Count 4.82 M/uL (4.70-6.10); White Blood Count 23.68 K/ul (4.8-10.8)
[2024-01-03 21:48] LABS: Albumin Globulin Ratio 1.4 (0.9-2); Albumin Level 4.2 gm/dl (3.4-5.0); BUN Creatinine Ratio 16.5 (10-20); Bilirubin,Total 0.5 mg/dl (0.2-1.0); Calcium 9.5 mg/dl (8.6-10.3); Creatinine Clr Calc Pharmacy 75.5 ml/min; Est GFR (African American) 68.8 ml/min; Est GFR (Non-African American) 59.3 ml/min; Magnesium 2.1 mg/dl (1.7-2.4); Potassium 4.3 mmol/L (3.5-5.1); Total Protein 7.2 gm/dl (6.0-8.3)
--- NOTE | 2024-01-04 01:15 | Communication Note ---
Date of Service: January 04, 2024 Notified by nursing of patient's persistently elevated heart rate (110-120). Rhythm remaining NSR. Patient asymptomatic. Obtained CXR, CBC, and CMP. Hemoglobin remains stable, though WBC rising. Patient remains on Vancomycin for gram positive bacteremia. Creatinine downtrending, diuretic ongoing. No active fluids. Magnesium and Potassium levels wnl. CXR obtained w/o focal consolidation. Plan: - Patient noted to be immunocompromised by CLL and recently underwent TURBT - Patient with MRSA will require Echocardiogram to rule out endocarditis. Ordered. - Will continue Vancomycin at this time for MRSA bacteremia while investigation for primary source ongoing CXR Obtained Echocardiogram ordered. Urinalysis ordered. - Would consider ID consult during day shift. Resident Activity Tracking Resident Involvement: Resident Care Provided Care Provided: Adult Hospital Medicine
[2024-01-04 06:16] LABS: Hemoglobin 11.8 g/dl (14.0-18.0); Mean Corpuscular Hemoglobin 26.6 pg (25.0-34.0); Mean Corpuscular Hgb Conc 31.1 g/dL (32.0-36.0); Mean Corpuscular Volume 85.8 fL (80.0-100.0); Mean Platelet Volume 9.8 fL (9.4-12.4); Platelet Count 181 K/uL (130-400); RDW Coefficient of Variation 15.4 % (11.5-14.5); Red Blood Count 4.43 M/uL (4.70-6.10); White Blood Count 22.51 K/ul (4.8-10.8)
[2024-01-04 06:32] LABS: BUN Creatinine Ratio 16.3 (10-20); Creatinine Clr Calc Pharmacy 77.8 ml/min; Est GFR (African American) 71.4 ml/min; Est GFR (Non-African American) 61.6 ml/min; Potassium 4.5 mmol/L (3.5-5.1)
[2024-01-04 06:36] LABS: Appearance Urine Cloudy (Clear); Bacteria Urine Automated None Seen (None Seen); Bilirubin Urine Negative (Negative); Blood Urine 3+ (Negative); Cast Urine Automated 0-2 /lpf (0-2); Color Urine Yellow; Epithelial Cell Urine Auto 0-2 /hpf (0-2); Glucose Urine UA 3+ (Negative); Ketones Urine Negative (Negative); Leukocyte Esterase Urine Negative (Negative); Nitrite Urine Negative (Negative); Protein Urine 1+ (Negative); RBC Urine Automated >20 /hpf (0-2); Specific Gravity Urine 1.033 (1.000-1.030); Urobilinogen Urine Negative (Negative); pH Urine 5.5 (4.5-7.5)
[2024-01-04] MEDS: SIROLIMUS 0.5 MG TABLET PO SCH (08:30)
[2024-01-04] MEDS: METOPROLOL SUCC 25MG EXT REL TAB PO SCH (08:30)
--- NOTE | 2024-01-04 08:41 | XRay Report ---
XR chest 1V portable HISTORY: Tachycardia. COMPARISON: Chest CT 11/06/2023. FINDINGS: No pneumothorax. No pleural effusions. There are low lung volumes. The cardiac silhouette r emains mildly enlarged. Innumerable bilateral pulmonary nodules are again noted. No new focal lung co nsolidations. No evidence for pulmonary edema. IMPRESSION: 1. Innumerable bilateral pulmonary nodules again noted. 2. Stable mild cardiomegaly. ACT 112: Negative or not required by law. Electronically signed by: Noble Richards M.D. 01/04/2024 8:40 AM
--- NOTE | 2024-01-04 11:25 | Pharmacy Report ---
Pharmacy PK ABX Note - Date of Service January 04, 2024 - Assessment and Plan Assessment 01/03 * SCr 1.66 --> 1.29 today. Blood culture updated to coag negative staph no lugdenesis (MRSE) on biofire. Second second is negative at 48 hours. Patient with some tachycardia overnight. Remains afebrile. Urine culture pending. 01/02 58 year old M with PMH including CLL, epitheloid hemangioendothelioma, bladder tumor post TURBT receiving vancomcyin for treatment of MRSE 2/4 (same set) in blood cultures. Possible contaminant- monitoring second set for now, negative at 24 hours. Also on doxycycline for positive Lyme screen. Initial WBC 25.98 downtrending, (however in setting of chronic elevation, CLL). Afebrile. Plan Vancomycin * Loading dose: 2250 mg IV x 1 * Maintenance dose: 1750 mg IV every 24 hours * Current regimen is predicted to achieve target AUC/SHERICE of 400-600 mg/L.hr however with lower probability * Given bacteremia source, will adjust to 1750 mg q18H * Random level ordered for 01/04 @ 1200 Pharmacy will continue to follow and will adjust dose/frequency as necessary. Thank you. Pharmacy has transitioned to AUC monitoring for vancomycin. AUC/SHERICE is the preferred PK/PD target and is associated with decreased risk of nephrotoxicity compared to traditional trough targets.
--- NOTE | 2024-01-04 11:52 | Hospitalist Progress Note ---
Date of Service January 04, 2024 Assessment & Plan (1) Hematoma of right lower leg: Plan: Patient presents to the hospital with right calf pain was started 3 days prior to presentation On admission,CT showed evidence of a hematoma with possible active bleed. Repeat CT scan Showed stable hematoma Continue to monitor H&H which has been stable (2) Bacteremia: Plan: 2 out of 4 bottles growing Coag negative staph, full characterization pending Empirically started on IV vancomycin 2D echo obtained, result pending (3) CLL (chronic lymphocytic leukemia): Plan: Incidentally found on blood work Continue to monitor for now Currently on no treatment (4) Lyme disease: Plan: Patient admits that he usually goes to the [facility] However denies any knowledge of recent tick bite Lyme disease positive Started on doxycycline IV Transition to p.o. upon discharge (5) Epithelioid hemangioendothelioma of lung: Plan: Follows up with Dr. Jarquin Resumzo sirolimus (6) Bladder mass: Plan: Underwent TURBT a few days Prior to presentation Continue to monitor (7) PRISCILA (acute kidney injury): Plan: Now resolved Plan Continue to monitor, await full characterization of blood cultures Full code Admission and Anticipated Discharge Date Admission Date: January 02, 2024 Subjective Patient seen and examined, states his pain is much better, Review of Systems Review of Systems: All systems reviewed are negative, apart from the ones contained in the history. Physical Exam Physical Exam: The patient is awake, alert and oriented 3, well developed and well nourished, normocephalic and atraumatic, lying in bed and in no acute distress. HEENT--PERRL, EOMI, mucous membranes and oropharynx mildly dry Neck--supple. No JVD. No bruits. Thyroid normal, trachea midline, no adenopathy. Heart--normal S1 and S2. No murmurs, rubs or gallops. Lungs--clear bilaterally, no respiratory distress, no accessory muscle use. Abdomen--normal bowel sounds and soft. Extremities--no cyanosis or clubbing. No edema.Right calf tenderness and swelling Dermatologic--normal skin turgor, normal color, no abnormal lymph nodes, no rash. Neurologic--cranial nerves II through XII grossly intact. Rheumatologic--normal range of motion. Psychiatric--normal affect. Results & Data Results & Data Vital Signs (Past 12 Hours) Vital Signs Temp Pulse Pulse Resp BP Pulse Ox O2 Del Method 01/04/24 11:15 98.6 F 75 16 151/84 H 97 Room Air 01/04/24 07:39 97.7 F 79 16 129/81 94 Room Air 01/04/24 07:05 98 H 01/04/24 03:35 97.5 F L 92 H 16 132/82 93 Room Air PG Care Time/CCT Total # of Minutes Spent Total Time Spent with Patient: Total time spent is greater than 50% in coordination of care (as documented) at patient's floor/unit and/or counseling patient: Coding Level of Care Code 10304 SUB INP/OBS CARE 2/35MIN Diagnoses Hematoma of right lower leg S80.11XA Bacteremia R78.81 CLL (chronic lymphocytic leukemia) C91.10 Lyme disease A69.20 Epithelioid hemangioendothelioma of lung D38.1 Bladder mass N32.89 PRISCILA (acute kidney injury) N17.9 Time Spent (min) 35
--- NOTE | 2024-01-04 12:02 | XCELERA ---
[id number]
[2024-01-05 07:15] LABS: Hematocrit (blood only) 41.7 % (42.0-52.0); Hemoglobin 13.1 g/dl (14.0-18.0); Mean Corpuscular Hemoglobin 26.6 pg (25.0-34.0); Mean Corpuscular Hgb Conc 31.4 g/dL (32.0-36.0); Mean Corpuscular Volume 84.8 fL (80.0-100.0); Mean Platelet Volume 9.2 fL (9.4-12.4); Platelet Count 201 K/uL (130-400); RDW Coefficient of Variation 15.2 % (11.5-14.5); RDW Standard Deviation 46.3 fL (36.4-46.3); Red Blood Count 4.92 M/uL (4.70-6.10); White Blood Count 29.12 K/ul (4.8-10.8)
[2024-01-05 07:25] LABS: BUN Creatinine Ratio 16.2 (10-20); Calcium 9.4 mg/dl (8.6-10.3); Creatinine Clr Calc Pharmacy 73.8 ml/min; Est GFR (African American) 66.9 ml/min; Est GFR (Non-African American) 57.8 ml/min; Potassium 4.6 mmol/L (3.5-5.1)
--- NOTE | 2024-01-05 12:18 | Discharge Summary ---
Date of Service January 05, 2024 Admission HPI Per Admitting Provider This is a 58-year-old male with a history of CLL, epithelioid hemangioendothelioma, bladder tumor status post TURBT, who came to the emergency department today on account of worsening right calf pain. According to the p tomas, the pain started about 3 days prior to presentation. He presented to a local walk-in clinic where they did an ultrasound which did not show any concerning changes. The pain persisted now with worsening swelling so he came to the emergency department for further evaluation. Here in the emergency department if venous Doppler was repeated we did not show any evidence of DVT but only showed some nonspecific subcutaneous edema and did 10 x 7 x 2 cm mass in the posterior right calf. This prompted a CT scan with contrast which now showed heterogeneous 3 x 2 x 14 cm lesion in the superior a spect of the medial head of the gastrocnemius favoring hematoma. There also appeared to be a small amount of active bleeding. His calf was wrapped up by the emergency department And he will be admitted to the hospital further management. Of note, his Lyme was also found to be positive. Principal Diagnosis Calf hematoma, Lyme disease Discharge Exam The patient is awake, alert and oriented 3, well developed and well nourished, normocephalic and atraumatic, lying in bed and in no acute distress. HEENT--PERRL, EOMI, mucous membranes and oropharynx mildly dry Neck--supple. No JVD. No bruits. Thyroid normal, trachea midline, no adenopathy. Heart--normal S1 and S2. No murmurs, rubs or gallops. Lungs--clear bilaterally, no respiratory distress, no accessory muscle use. Abdomen--normal bowel sounds and soft. Extremities--no cyanosis or clubbing. No edema.Right calf tenderness and swelli ng Dermatologic--normal skin turgor, normal color, no abnormal lymph nodes, no rash. Neurologic--cranial nerves II through XII grossly intact. Rheumatologic--normal range of motion. Psychiatric--normal affect. Discharge Data Allergies Allergy/AdvReac Type Severity Reaction Status Date / Time codeine Allergy Hives Verified 01/01/24 22:43 Consultations 01/02/24 07:51 ED Decision to Admit Stat 01/05/24 07:30 Consult Infectious Diseases Routine Ordered Studies 01/02/24 US venous doppler LE RT Urgent 01/02/24 04:48 CT tib/fib RT w con Stat 01/03/24 07:23 CT tib/fib RT wo con Routine Hospital Course (1) Hematoma of right lower leg: Patient presents to the hospital with right calf pain was started 3 days prior to presentation On admission,CT showed evidence of a hematoma with possible active bleed. Repeat CT scan Showed stable hematoma Continue to monitor H&H which has been stable (2) Bacteremia: Most likely contaminant Empirically started on IV vancomycin 2D echo Did not show any evidence of vegetations Appreciate ID recs: Monitor repeat blood culture (3) CLL (chronic lymphocytic leukemia): Incidentally found on blood work Continue to monitor for now Currently on no treatment (4) Lyme disease: Patient admits that he usually goes to the [facility] However denies any knowledge of recent tick bite Lyme disease positive Started on doxycycline IV Transition to p.o. upon dischargeTo complete a 10-day course (5) Epithelioid hemangioendothelioma of lung: Follows up with Dr. Jarquin Resume sirolimus (6) Bladder mass: Underwent TURBT a few days Prior to presentation Continue to monitor (7) PRISCILA (acute kidney injury): Now resolved Plan Discharge home Full code Total Time Total Time Spent Total Time Spent (In Minutes): 35 Discharge Plan Discharge Items Patient Disposition: Home - Self-Care Reason For Visit: CALD HEMATOMA Discharge Diagnosis: calf hematoma, lyme disease Activity: Resume your previous activity Non-emergency contact: Primary Care Provider and Oncologist Call non-emergency contact if: you have any medication questions Follow-up/Referrals: Stanford Farnsworth PA-C [Primary Care Provider] - Diet: Regular Addtl Attending Provider Instructions: Please make appointment to follow-up with your regular doctors Pending Studies at Discharge: No Stand-Alone Forms: My [employer], Work/School Release, Smoking Cessation Medications and DC Order Prescriptions: New doxycycline monohydrate 100 mg capsule 100 mg PO BID 10 Days Qty: 20 0RF Continued sirolimus [Rapamune] 1 mg tablet 1 mg PO BID gabapentin 300 mg tablet 300 mg PO BID Jardiance 10 mg tablet 10 mg PO HS spironolactone 25 mg tablet 25 mg PO HS clopidogrel [Plavix] 75 mg tablet 75 mg PO QAM aspirin 81 mg capsule 81 mg PO QAM furosemide [Lasix] 40 mg tablet 40 mg PO QAM fexofenadine [Radhika Allergy] 180 mg tablet 180 mg PO QAM Ozempic 1 mg/dose (4 mg/3 mL) pen injector 1 mg subcut Q7D Patient Comments: sundays Rx Instructions: Friday atorvastatin [Lipitor] 20 mg tablet 40 mg PO HS magnesium 500 mg Tablet 500 mg PO QAM metoprolol succinate 25 mg tablet extended release 24 hr 25 mg PO QAM cholecalciferol (vitamin D3) [Vitamin D3] 50 mcg (2,000 unit) Capsule 50 mcg PO QAM phenazopyridine [Pyridium] 200 mg tablet 200 mg PO Q8H PRN (Reason: pain) Qty: 10 0RF tamsulosin 0.4 mg capsule 0.4 mg PO HS Qty: 30 0RF oxycodone-acetaminophen [Percocet] 7.5-325 mg tablet 1 tab PO Q8H PRN (Reason: pain) Qty: 7 0RF Discontinued sulfamethoxazole-trimethoprim 400-80 mg tablet 1 tab PO QAM Discharge Orders: Discharge Order (Routine); Ordered 01/05/24 Ordered By: Doyel Sosa Admission Data Admit Date/Time: 01/02/24 08:09 Attending Provider: Doyle Sosa Admit Provider: Doyle Sosa Primary Care Provider: Stanford Farnsworth Other Providers: Doyle Sosa; Samantha Shepherd; Xena Heath; Delmy Elizondo; Audrey Fan; Anika Thomas; Aylin Quan Coding Level of Care Code 11850 INP/OBS DISCH >30 MIN Diagnoses Hematoma of right lower leg S80.11XA Bacteremia R78.81 CLL (chronic lymphocytic leukemia) C91.10 Lyme disease A69.20 Epithelioid hemangioendothelioma of lung D38.1 Bladder mass N32.89 PRISCILA (acute kidney injury) N17.9 Time Spent (min) 35
--- NOTE | 2024-01-05 14:23 | Infectious Disease Consult ---
Date of Consultation January 05, 2024 Assessment & Plan (1) Coagulase negative Staphylococcus bacteremia: (2) Bacteremia: (3) Lyme disease: (4) CLL (chronic lymphocytic leukemia): (5) Epithelioid hemangioendothelioma of lung: Plan ID Problem List: 1. Blood Cx positive for CoNS and Bacillus 2. Lyme Ab positive 3. R calf hematoma 4. CLL Impression: Jovan Saucedo is a 58-year-old male with a history of CLL, epithelioid hemangioendothelioma of lung, bladder tumor s/p TURBT, who presented to [facility] on 01/01/24 with R calf pain, found to have a lesion in the R gastrocnemius c/f hematoma, also with 01/01 BCx + CoNS and Bacillus spp. ID is consulted for CoNS and Bacillus bacteremia. 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 He presented to a local walk-in clinic where they did an ultrasound which did not show any c oncerning changes. The pain persisted now with worsening swelling, so he presented to the ED for further evaluation. No fevers or chills at home. In the ED, T36.7 BP 153/94 HR 79 SpO2 94% on RA. WBC 18.49 (note pt with chronic leukocytosis i/s/o CLL). Venous doppler without DVT but did show nonspecific subcutaneous edema and did 10 x 7 x 2 cm mass in the posterior right calf. This prompted a CT scan with contrast which now showed heterogeneous 3 x 2 x 14 cm lesion in the superior aspect of the medial head of the gastrocnemius favoring hematoma. There also appeared to be a small amount of active bleeding. CXR without acute changes, with innumerable pulmonary nodules (seen on prior CT chest including 10/2023 and favored to be mets). A repeat CT on 01/02 showed that the hematoma remained stable. Patient denied any trauma to the RLE, just that he is on anticoagulation. Patient has three cardiac stents, and denies any other hardware/implants. No fevers or chills. 01/01 BCx + CoNS in 1 of 2 sets (2/2 bottles within 1 set, BCID + Staph epi, mecA positive); Bacillus spp non-anthracis in 1 of 2 sets (1 of 4 bottles). 01/03 TTE normal LVEF, no regional WMAs, borderline LVH, no significant valvular pathology, no valvular vegetation identified. He was started on IV vancomycin on 01/01. Of note, his Lyme Ab was also found to be positive (+ screen, + confirmatory IgG, + confirmatory IgM). He does have frequent exposure to the agosto, and recalls that a few months ago he had a tick in the back of his shoulder and back of his RLE. He was started on IV doxycycline on 01/01. No rash (aside from known scaly skin and plaquing from psoriasis of the hands, knees, and elbows). He underwent TURP on 12/21 and has had some hematuria since then that is improving; no dysuria, improving urinary stream. Discussion Patient with CoNS and Bacillus, all in 1 single set of BCx. Unclear clinical significance but both bacteria are common colonizers/contaminants. TTE without valvular vegatations. Although the CoNS was in 2/2 bottles within the set, overall at this time the two bacteria appear to be colonizers/contaminants. The patient has been afebrile and without systemic s/sx of infection. WBC count has been stable within baseline range for CLL. He has been on vancomycin since 12/31. No repeat BCx were ordered prior to abx; will order repeat BCx (on 01/04) which will be pending at time of discharge, to be followed until finalized. Patient without hardware or cardiac devices in place and thus low risk for complicated CoNS bacteremia. Can stop vancomycin and monitor closely. The patients RLE hematoma is felt to be spontaneous/non-traumatic in the setting of anticoagulation. Considered the possibility of superinfected hematoma though pt reports that his clinical symptoms improved with analgesics and SARAH wrap. Have counseled pt with close return precautions including for fevers, chills, night sweats, worsening RLE pain, or any other new and concerning symptoms. If worsening RLE pain and fevers, would repeat CT RLE and reevaluate for possible abscess/superinfection of RLE hematoma. Also with positive Lyme Ab screen and positive IgG and IgM confirmatory testing. Patient with recent tick exposures. Has not had any new rashes or joint pains. Can complete a 10-day course of doxycycline. Recommendations: - Can stop vancomycin and monitor closely - Continue doxycycline 100 mg BID (change to PO), to complete 10-day course (01/0101/12/24) - Repeat BCx x2 (ordered for 01/04) to confirm clearance pending at time of discharge, PCP to follow until finalized - F/u 01/01 BCx until finalized - Ensure close follow-up with PCP - Close return precautions including for fevers, chills, night sweats, worsening RLE pain, or any other new and concerning symptoms. If worsening RLE pain and fevers, would repeat CT RLE and reevaluate for possible abscess/superinfection of RLE hematoma Plan discussed with Dr. Sosa Thank you for letting ID participate in the care of this patient. ID will sign off at this time. If questions, please contact the [facility] at [phone]. Aylin Quan MD, MHS Infectious Diseases [facility] Connect direct line: [phone] Consultation Information Consultation was provided via telemedicine using two-way real-time interactive telecommunication between the patient and the telemedicine provider. For the duration of the visit, the provider was performing the assessment from a different facility than the patient. This includesuse of bluetooth stethoscope forauscultationperformed by the telepresenter that the telemedicine provider can hear if described in the physical exam. Jewel Oliving Machine Operator contact information: Please call [facility] Call Center [phone]. (Phone Number For Physician Use Only) After establishing a telemedicine visit, patient was: Patient was verified with two unique identifiers, Patient/authorized rep acknowledged consent and understanding and Gave permission to continue telehealth session Time Spent with Patient: Initial => 75 min History of Present Illness Attending Physician: Doyle Sosa MD Allergies Allergy/AdvReac Type Severity Reaction Status Date / Time codeine Allergy Hives Verified 01/01/24 22:43 Home Medications Medication Instructions Recorded Confirmed Type aspirin 81 mg capsule 81 mg PO QAM 11/10/23 01/02/24 History atorvastatin 20 mg tablet (Lipitor) 40 mg PO HS 11/10/23 01/02/24 History clopidogrel 75 mg tablet (Plavix) 75 mg PO QAM 11/10/23 01/02/24 History empagliflozin 10 mg tablet 10 mg PO HS 11/10/23 01/02/24 History (Jardiance) fexofenadine 180 mg tablet 180 mg PO QAM 11/10/23 01/02/24 History (Radhika Allergy) furosemide 40 mg tablet (Lasix) 40 mg PO QAM 11/10/23 01/02/24 History gabapentin 300 mg tablet 300 mg PO BID 11/10/23 01/02/24 History semaglutide 1 mg/dose (4 mg/3 mL) 1 mg subcut Q7D 11/10/23 01/02/24 History subcutaneous pen injector (Ozempic) sirolimus 1 mg tablet (Rapamune) 1 mg PO BID 11/10/23 01/02/24 History spironolactone 25 mg tablet 25 mg PO HS 11/10/23 01/02/24 History cholecalciferol (vitamin D3) 50 50 mcg PO QAM 12/09/23 01/02/24 History mcg (2,000 unit) capsule (Vitamin D3) magnesium 500 mg tablet 500 mg PO QAM 12/09/23 01/02/24 History metoprolol succinate 25 mg 25 mg PO QAM 12/09/23 01/02/24 History tablet,extended release 24 hr oxycodone-acetaminophen 7.5 mg-325 1 tab PO Q8H PRN pain #7 tabs 12/22/23 01/02/24 Rx mg tablet (Percocet) phenazopyridine 200 mg tablet 200 mg PO Q8H PRN pain #10 tabs 12/22/23 01/02/24 Rx (Pyridium) tamsulosin 0.4 mg capsule 0.4 mg PO HS #30 caps 12/22/23 01/02/24 Rx doxycycline monohydrate 100 mg 100 mg PO BID 10 days #20 caps 01/05/24 Rx capsule Patient History Medical History History of anesthesia reaction during one of the bronchoscopes, felt like he couldn't breath while being put under the anesthesia Umbilical hernia no sx as of yet Thyroid nodule benign bx, monitored [facility], not intubated; resolved Sleep apnea CPAP Hypertension Hyperlipidemia Diabetes mellitus, type 2 NIDDM Congestive heart failure Epithelioid hemangioendothelioma of lung dx 08/2022, oral medication; f/u dr. chappell CLL (chronic lymphocytic leukemia) dx ~2018 or earlier, just monitored with bloodwork; f/u dr. chappell Surgical History Hx of colonoscopy History of bronchoscopy x3 [place] teeth extracted Hx of heart artery stent 01/2023, [facility], x3 stents; f/u monie horton Hx of cardiac cath 01/2023, "legs swelling and abnormal testing," [facility], x3 stents; f/u monie horton Family History Mother Diabetes Hypertension Ovarian cancer Father Hypertension Diabetes Head and neck cancer Social History Smoking Status: Never smoker Second Hand Exposure: Yes (hx); Do You Dip or Chew Tobacco: No; Hx Alcohol Use: No Hx Substance Use: No Preferred Language: Turkmen Communication Ability: Effective Animal Nutritionist Required: No Beliefs That Will Affect Care: None Current Living Situation: Spouse Feels Safe at Home: Yes Assistive Devices: CPAP and Glasses Physical Exam Physical Exam: Exam obtained with aid of in-person telepresenter. General: Well-appearing, no acute distress HEENT: Conjunctivae non-injected, sclerae anicteric, MMM, OP clear. Resp: Respirations nonlabored. Back: No tenderness to palpation along spine Ext: RLE with ecchymosis on back of R posterior thigh, calf and R heel; SARAH wrap overlying. L medial thigh with small ecchymosis which patient says is from hitting his leg when getting up from bed. No joint warmth or effusions noted. Scaly skin of bilateral palms, plaquing and scaly skin of knees. Skin: As above, no other rashes or lesions. Neuro: Alert & interactive. Grossly non-focal. Psych: Pleasant, appropriate. Results & Data Vital Signs (Past 12 Hours) Vital Signs Temp Pulse Pulse Pulse Resp BP BP 01/05/24 12:32 36.8 C 72 89 16 133/80 144/83 H 01/05/24 11:04 36.8 C 89 16 133/80 01/05/24 07:40 36.6 C 79 16 144/83 H 01/05/24 07:31 01/05/24 07:06 70 01/05/24 03:31 36.6 C 84 18 118/74 Pulse Ox O2 Del Method 01/05/24 12:32 95 01/05/24 11:04 95 Room Air 01/05/24 07:40 96 Room Air 01/05/24 07:31 Room Air 01/05/24 07:06 01/05/24 03:31 95 Room Air, BiPAP Diagnostic Findings Diagnostics: 01/03 TTE: normal LVEF, no regional WMAs, borderline LVH, no significant valvular pathology, no valvular vegetation identified. 01/02 CXR 1. Innumerable bilateral pulmonary nodules again noted. 2. Stable mild cardiomegaly. 01/02 CT RLE 1. No acute bony abnormality is seen involving the left tibia or fibula. 2. An intramuscular hematoma is again seen within the medial head of the gastrocnemius muscle. This has not appreciably changed from yesterday. 01/01 CT RLE 1. There is a heterogeneous 3.4 x 2.2 x 14.3 cm lesion of the superior aspect of the medial head of the gastrocnemius muscle. This favors the appearance of a hematoma and there appears to a small amount of active bleeding. Recommend follow-up clinical exam and/or imaging to ensure resolution and exclude underlying mass. 2. Nonspecific subcutaneous edema. 01/01 venous doppler 1. No deep vein thrombosis of the right lower extremity. 2. Nonspecific subcutaneous edema. 3. There is a 10.9 x 7.4 x 2.5 Cm mass of the posterior right calf with internal Doppler flow. This is indeterminate. Recommend further evaluation with MRI. Micro Data: 01/04 BCx x2: PEND 01/01 BCx x2: CoNS in 1 of 2 sets (2/2 bottles within 1 set, BCID + Staph epi, mecA positive); Bacillus spp non-anthracis in 1 of 2 sets (1 of 4 bottles) 12/31 Lyme screen: positive; IgG confirmatory positive, IgM confirmatory positive Antibiotic Summary: vancomycin (12/31 present) doxycycline (01/01 present) prior ceftriaxone (12/31)
[2024-01-05] MEDS ORDERED: VANCOMYCIN HCL 1,750 MG in SODIUM CHLORIDE 0.9% 500 ML IV SCH (21:00)
== END 2024-01-05 13:47 | disposition home or self-care (01) | DRG 605 ==
LOC: ED 22:35 → EDINP 01-02 08:09 → 2N 01-02 08:12

== ENCOUNTER 2024-01-29 02:34 | Inpatient (IN) ==
[2024-01-29] MEDS ORDERED: ONDANSETRON INJ 2 MG/ML 2 ML VIAL IV PRN (06:00)
[2024-01-29] MEDS ORDERED: ACETAMINOPHEN 325 MG TAB PO PRN (06:00)
[2024-01-29] MEDS ORDERED: MELATONIN 3 MG TAB PO PRN (06:00)
--- NOTE | 2024-01-29 06:09 | History & Physical Report ---
Date of Service January 29, 2024 Assessment & Plan (1) Gross hematuria: Plan: -Admit to [facility] n.p.o. -Continuous bladder irrigation ordered -Urology consult placed -IV ceftriaxone 2 g every 24 hours Admission and Anticipated Discharge Date Admission Date: January 29, 2024 History of Present Illness Primary Care Provider: Stanford Farnsworth PA-C Jovan is a 58-year-old man with history of multiple bladder lesions s/p resection who presents via direct admission from [place] ED for management of gross hematuria. Already discussed with Dr. Isidro, who recommended direct admission. Patient has catheter in place + CBI. Hematuria started 2 days ago, with occasional clots. He initially attempted to go to work with catheter in place. However, he continued to pass more clots at work and eventually became occluded, which caused him severe pain that he localizes to the pubic area. Presented to ED at [facility] yesterday for evaluation they replaced 18 Cuban catheter with 24 Cuban catheter, after discussing with Dr. Isidro. Patient was then transferred to [facility] for continued management. At present, patient is voiding well, and pain-free. He denies fever, chills, headache, shortness of breath, chest pain, nausea, vomiting, abdominal pain, flank pain, back pain, or pain with urination. Allergies Allergy/AdvReac Type Severity Reaction Status Date / Time codeine Allergy Hives Verified 01/01/24 22:43 Home Medications Medication Instructions Recorded Confirmed Type aspirin 81 mg capsule 81 mg PO QAM 11/10/23 01/29/24 History atorvastatin 20 mg tablet (Lipitor) 40 mg PO HS 11/10/23 01/29/24 History clopidogrel 75 mg tablet (Plavix) 75 mg PO QAM 11/10/23 01/29/24 History empagliflozin 10 mg tablet 10 mg PO HS 11/10/23 01/29/24 History (Jardiance) fexofenadine 180 mg tablet 180 mg PO QAM 11/10/23 01/29/24 History (Radhika Allergy) furosemide 40 mg tablet (Lasix) 40 mg PO QAM 11/10/23 01/29/24 History gabapentin 300 mg tablet 300 mg PO BID 11/10/23 01/29/24 History semaglutide 1 mg/dose (4 mg/3 mL) 1 mg subcut Q7D 11/10/23 01/29/24 History subcutaneous pen injector (Ozempic) sirolimus 1 mg tablet (Rapamune) 1 mg PO BID 11/10/23 01/29/24 History spironolactone 25 mg tablet 25 mg PO HS 11/10/23 01/29/24 History cholecalciferol (vitamin D3) 50 50 mcg PO QAM 12/09/23 01/29/24 History mcg (2,000 unit) capsule (Vitamin D3) magnesium 500 mg tablet 500 mg PO QAM 12/09/23 01/29/24 History metoprolol succinate 25 mg 25 mg PO QAM 12/09/23 01/29/24 History tablet,extended release 24 hr oxycodone-acetaminophen 7.5 mg-325 1 tab PO Q8H PRN pain #7 tabs 12/22/23 01/29/24 Rx mg tablet (Percocet) phenazopyridine 200 mg tablet 200 mg PO Q8H PRN pain #10 tabs 12/22/23 01/29/24 Rx (Pyridium) tamsulosin 0.4 mg capsule 0.4 mg PO HS #30 caps 12/22/23 01/29/24 Rx Past Med/Surg History Problem List (Updated 01/22/24 @ 00:08 by Paul Mcguire) Coagulase negative Staphylococcus bacteremia PRISCILA (acute kidney injury) Bacteremia Bladder mass Lyme disease (Acute) Hematoma of right lower leg (Acute) CLL (chronic lymphocytic leukemia) dx ~2018 or earlier, just monitored with bloodwork; f/u dr. chappell Epithelioid hemangioendothelioma of lung dx 08/2022, oral medication; f/u dr. chappell Hyperlipidemia Diabetes Heart failure Arthritis Gross hematuria Hematuria Medical History History of anesthesia reaction Umbilical hernia Thyroid nodule History of COVID-19 Sleep apnea Hypertension Hyperlipidemia Diabetes mellitus, type 2 Congestive heart failure Surgical History Hx of colonoscopy History of bronchoscopy [place] teeth extracted Hx of heart artery stent Hx of cardiac cath Family History Mother Diabetes Hypertension Ovarian cancer Father Hypertension Diabetes Head and neck cancer Social History Smoking Status: Never smoker Second Hand Exposure: No; Do You Dip or Chew Tobacco: No; Tobacco Cessation Education Requested by Patient: No Hx Alcohol Use: No Hx Substance Use: No Preferred Language: Serbian Communication Ability: Effective Corrosion Control Specialist Required: No Beliefs That Will Affect Care: None Current Living Situation: Spouse Other Information That Helps Us Care for You: No Feels Safe at Home: Yes Safety Concerns: Feels Safe At This Time Assistive Devices: CPAP Review of Systems Review of Systems: All systems reviewed & are unremarkable except as noted in HPI & below Physical Exam Physical Exam: General: no acute distress, speaking in full sentences Resp: good inspiratory effort, no labored breathing HEENT: conjunctivae appear clear, no audible congestion, no swelling noted face or lips Skin: skin appears dry, normal coloration, no rash visible on exposed skin areas Neuro: alert and oriented x3, no focal deficits appreciated Psych: euthymic affect, pleasant and interactive, logical thought process Results & Data Results & Data Vital Signs (Past 12 Hours) Vital Signs Temp Pulse Resp BP Pulse Ox O2 Del Method 01/29/24 05:56 36.3 C L 100 H 16 125/84 94 Room Air Supervising Physician Co-Signing Physician Notes Attending addendum: I have physically seen this patient, have supervised the medical residents activities, and agree with the H&P unless as otherwise noted. Assessment and Plan: Gross hematuria/history of multiple bladder lesions and previous procedures Patient accepted in transfer from [facility] [address], we presented as hematuria. Patient is undergoing continuous bladder irrigation for several hours there, and is being transferred to [facility] for further urologic care Continue CBI Ceftriaxone 2 g IV daily Follow urine culture and sensitivity IV fluids as noted Hold aspirin and clopidogrel, avoid anticoagulation Continue tamsulosin Consult urology. CAD/hypertension/history of angioplasty and stenting of proximal and mid left circumflex lesions with 3 drug-eluting stents 01-31-2023-- Temporarily holding aspirin and clopidogrel as noted Hold spironolactone and furosemide Continue metoprolol succinate Diabetes mellitus- Hold empagliflozin and semaglutide Placed on Accu-Cheks with NovoLog SSI Resident Activity Tracking Resident Involvement: Resident Care Provided Care Provided: Adult [facility] Medicine
[2024-01-29] MEDS: cefTRIAXone SODIUM 2,000 MG/50 ML BAG IV SCH (06:26)
[2024-01-29] MEDS ORDERED: ACETAMINOPHEN 1,000 MG/100 ML VIAL IV PRN (06:50)
[2024-01-29] MEDS ORDERED: HYDROmorphone INJ 0.5 MG/0.5 ML SYR IV PRN (06:55)
[2024-01-29 07:29] LABS: Hematocrit (blood only) 41.2 % (42.0-52.0); Hemoglobin 12.7 g/dl (14.0-18.0); Mean Corpuscular Hemoglobin 26.3 pg (25.0-34.0); Mean Corpuscular Hgb Conc 30.8 g/dL (32.0-36.0); Mean Corpuscular Volume 85.5 fL (80.0-100.0); Mean Platelet Volume 9.5 fL (9.4-12.4); Nucleated RBC # (auto) 0.02 K/uL (0.00-0.12); Nucleated RBC % (auto) 0.1 %; Platelet Count 200 K/uL (130-400); RDW Coefficient of Variation 15.9 % (11.5-14.5); RDW Standard Deviation 49.3 fL (36.4-46.3); Red Blood Count 4.82 M/uL (4.70-6.10); White Blood Count 32.19 K/ul (4.8-10.8)
[2024-01-29 07:38] LABS: Alanine Aminotransferase 16 U/L (7-52); Albumin Globulin Ratio 1.3 (0.9-2); Albumin Level 4.2 gm/dl (3.4-5.0); Alkaline Phosphatase 87 U/L (34-104); Anion Gap 9 (3-11); Aspartate Aminotransferase 16 U/L (13-39); Bilirubin,Total 0.4 mg/dl (0.2-1.0); Blood Urea Nitrogen 19 mg/dl (6-23); Carbon Dioxide 22 mmol/L (21-32); Chloride 107 mmol/L (98-107); Est GFR (African American) 66.9 ml/min; Est GFR (Non-African American) 57.8 ml/min; Globulin 3.2 gm/dl (2.5-4.0); Glucose 183 mg/dl (70-99(Fasting)); Magnesium 2.4 mg/dl (1.7-2.4); Potassium 4.8 mmol/L (3.5-5.1); Sodium 138 mmol/L (136-145); Total Protein 7.4 gm/dl (6.0-8.3)
[2024-01-29 07:42] LABS: INR 1.1 (0.9-1.1)
[2024-01-29 08:06] LABS: Basophils # (auto) 0.06 K/uL (0.00-0.20); Basophils % (auto) 0.2 %; Immature Granulocytes # (auto) 0.08 K/uL (0.01-0.20); Immature Granulocytes % (auto) 0.2 %; Lymphocytes # (auto) 23.94 K/uL (1.20-3.40); Lymphocytes % (auto) 74.4 %; Monocytes # (auto) 0.46 K/uL (0.11-0.59); Monocytes % (auto) 1.4 %; Neutrophils # (auto) 7.65 K/uL (1.40-6.50); Neutrophils % (auto) 23.8 %; Polychromasia 1+; Smudge Cells Present
--- NOTE | 2024-01-29 10:50 | Urology Consultation ---
<Statement entered by Brock Singh MD - 01/30/24 06:38> I have discussed Mr. Saucedo's case with [facility] [place] and agree with the above documentation. After hand irrigation at the bedside, urine was very clear on CBI. I suspect he is not having significant ongoing bleeding at this point. Initial bleed may have been due to his recent surgery exacerbated by antic oagulation. We will keep him on CBI and gradually wean as able. -Brcok Singh MD. Date of Consultation January 29, 2024 Assessment & Plan (1) Gross hematuria: Plan 58 yo/M who was a direct admission from [place] ED for management of gross hematuria. - Pt is afebrile, normotensive, and mildly tachycardic - Labs today show hemoglobin 12.7 and creatinine 1.36 - He is on IV Ceftriaxone. - 22Fr 3- way Osullivan catheter manually irrigated at bedside this AM with removal of a moderate amount of clot. - Currently draining garcia red urine. - Would recommend holding off on CBI for now. - Continue to monitor urine output. OK to manually hand irrigate as needed for clots, retention, suprapubic pain. - Will obtain CT imaging/report from outside facility for review. - Keep NPO in the event he needs OR today for clot evacuation. - Will reassess later this morning. - Urology will follow along. - Pt reassessed this morning. - Osullivan catheter manually irrigated at bedside by Dr. Singh with removal of a significant amount of clot. - CBI initiated and Osullivan currently draining light pink urine with CBI on slow- moderate rate. - Continue to monitor urine output. Can titrate CBI as needed. OK to manually irrigate catheter as needed for clots, retention, suprapubic pain. - Keep NPO for now. Will reassess this afternoon. - Continue supportive care and antibiotics. - Urology to follow. History of Present Illness Attending Physician: Marce Sewell DO History of Present Illness 58-year-old man with a history of TURBT, bladder biopsies, bladder fulguration, urethral dilation, fulguration of the prostate/prostatic varicosities with Dr. Angel on 12/22/2023 who presented via direct admission from [place] ED for management of gross hematuria. Patient reports hematuria started approximately 2 days ago and progressively worsened. He began to pass clots with severe pain and therefore presented to [place] ED. Per his report, patient had a 22 [place]alan three-way Osullivan catheter placed with CBI and multiple attempts at manual irrigation while in [place] ED. He continued to clot off and was transferred to [facility]. Patient was seen at bedside this AM. Awake, resting bed on arrival. No acute distress. Has been NPO. Osullivan draining maroon-colored urine. He denies suprapubic pain or pressure at present. He denies fever, chills, nausea, vomiting. He is on Plavix, last dose yesterday morning 01/27. Allergies Allergy/AdvReac Type Severity Reaction Status Date / Time codeine Allergy Hives Verified 01/01/24 22:43 Home Medications Medication Instructions Recorded Confirmed Type aspirin 81 mg capsule 81 mg PO QAM 11/10/23 01/02/24 History atorvastatin 20 mg tablet (Lipitor) 40 mg PO HS 11/10/23 01/02/24 History clopidogrel 75 mg tablet (Plavix) 75 mg PO QAM 11/10/23 01/02/24 History empagliflozin 10 mg tablet 10 mg PO HS 11/10/23 01/02/24 History (Jardiance) fexofenadine 180 mg tablet 180 mg PO QAM 11/10/23 01/02/24 History (Radhika Allergy) furosemide 40 mg tablet (Lasix) 40 mg PO QAM 11/10/23 01/02/24 History gabapentin 300 mg tablet 300 mg PO BID 11/10/23 01/02/24 History semaglutide 1 mg/dose (4 mg/3 mL) 1 mg subcut Q7D 11/10/23 01/02/24 History subcutaneous pen injector (Ozempic) sirolimus 1 mg tablet (Rapamune) 1 mg PO BID 11/10/23 01/02/24 History spironolactone 25 mg tablet 25 mg PO HS 11/10/23 01/02/24 History cholecalciferol (vitamin D3) 50 50 mcg PO QAM 12/09/23 01/02/24 History mcg (2,000 unit) capsule (Vitamin D3) magnesium 500 mg tablet 500 mg PO QAM 12/09/23 01/02/24 History metoprolol succinate 25 mg 25 mg PO QAM 12/09/23 01/02/24 History tablet,extended release 24 hr oxycodone-acetaminophen 7.5 mg-325 1 tab PO Q8H PRN pain #7 tabs 12/22/23 01/02/24 Rx mg tablet (Percocet) phenazopyridine 200 mg tablet 200 mg PO Q8H PRN pain #10 tabs 12/22/23 01/02/24 Rx (Pyridium) tamsulosin 0.4 mg capsule 0.4 mg PO HS #30 caps 12/22/23 01/02/24 Rx Patient History Medical History History of anesthesia reaction Umbilical hernia Thyroid nodule History of COVID-19 Sleep apnea Hypertension Hyperlipidemia Diabetes mellitus, type 2 Congestive heart failure Surgical History Hx of colonoscopy History of bronchoscopy [place] teeth extracted Hx of heart artery stent Hx of cardiac cath Family History Mother Diabetes Hypertension Ovarian cancer Father Hypertension Diabetes Head and neck cancer Social History Smoking Status: Never smoker Second Hand Exposure: No; Do You Dip or Chew Tobacco: No; Tobacco Cessation Education Requested by Patient: No Hx Alcohol Use: No Hx Substance Use: No Preferred Language: Turkmen Communication Ability: Effective Lpn Or Medical Assistant Required: No Beliefs That Will Affect Care: None Current Living Situation: Spouse Other Information That Helps Us Care for You: No Feels Safe at Home: Yes Safety Concerns: Feels Safe At This Time Assistive Devices: Glasses Review of Systems Review of Systems: All systems reviewed & are unremarkable except as noted in HPI & below Physical Exam Constitutional: no acute distress Respiratory: no respiratory distress and no labored breathing Gastrointestinal (Abdomen): Inspection/Auscultation: abdomen not distended Percussion/Palpation: abdomen soft; abdomen nontender Musculoskeletal: Head/Neck/Chest: normocephalic Skin: No visible rashes or lesions to exposed skin areas Neurologic: moves all extremities and awake Psychiatric: A+Ox3, euthymic affect Genitourinary: Osullivan draining with hematuria Results & Data Vital Signs (Past 12 Hours) Vital Signs Temp Pulse Resp BP Pulse Ox O2 Del Method 01/29/24 07:21 36.5 C 105 H 18 116/74 94 Room Air 01/29/24 05:59 36.3 C L 100 H 16 125/84 94 Room Air 01/29/24 05:56 36.3 C L 100 H 16 125/84 94 Room Air PG Care Time/CCT Total # of Minutes Spent Total Time Spent with Patient: Total time spent is greater than 50% in coordination of care (as documented) at patient's floor/unit and/or counseling patient: Coding Level of Care Code 12104 IN/OBS CONSULT LVL 4,60M Diagnoses Gross hematuria R31.0
--- NOTE | 2024-01-29 15:56 | Hospitalist Progress Note ---
Date of Service January 29, 2024 Assessment & Plan (1) Gross hematuria: Plan: -Urology consult continue continuous bladder irrigation no urgent surgical intervention no longer NPO -Will order home meds -Continue CTX 2g q24h Admission and Anticipated Discharge Date Admission Date: January 29, 2024 Supervising Physician Co-Signing Physician Notes I personally examined the patient and verified smith points of history and exam, discussed case, and agree with decision making and plan documented by Dr. Mc stratton. Patient is a 58-year-old male with a medical history complicated by history of CLL, bladder tumor s/p TURBT, and epithelioid hemangioendothelioma on admission from outside hospital for gross hematuria with clots. On exam today, patient was undergoing manual irrigation and output showed clear yellow urine. He denied any pain during exam. Hemoglobin 12.7 with stability. He is currently on ceftriaxone. Urology following, appreciate recs. Subjective Patient seen and evaluated at bedside this morning. No acute events overnight. Resting comfortably this am. No acute complaints. Urology to see patient Review of Systems Review of Systems: reviewed, per HPI Physical Exam Physical Exam: Constitutional: well-appearing, no acute distress HEENT: NCAT, no conjunctival injection CV: clinically well perfused Resp: no increased work of breathing GI: nondistended MSK: no gross deformities appreciated : justin in place Skin: no rash appreciated Neuro: alert, oriented, no focal neurologic deficit appreciated Results & Data Results & Data Vital Signs (Past 12 Hours) Vital Signs Temp Pulse Resp BP Pulse Ox O2 Del Method 01/29/24 13:58 36.7 C 74 16 124/80 94 Room Air 01/29/24 07:21 36.5 C 105 H 18 116/74 94 Room Air 01/29/24 05:59 36.3 C L 100 H 16 125/84 94 Room Air 01/29/24 05:56 36.3 C L 100 H 16 125/84 94 Room Air Resident Activity Tracking Resident Involvement: Resident Care Provided Care Provided: Adult Hospital Medicine
[2024-01-29] MEDS: TAMSULOSIN HCL 0.4 MG CAP PO SCH (20:32)
[2024-01-29] MEDS: GABAPENTIN 300 MG CAP PO SCH (20:32)
[2024-01-29] MEDS: ATORVASTATIN 40 MG TAB PO SCH (20:32)
[2024-01-30 06:18] LABS: Hematocrit (blood only) 37.5 % (42.0-52.0); Hemoglobin 11.5 g/dl (14.0-18.0); Mean Corpuscular Hemoglobin 26.4 pg (25.0-34.0); Mean Corpuscular Hgb Conc 30.7 g/dL (32.0-36.0); Mean Corpuscular Volume 86.2 fL (80.0-100.0); Mean Platelet Volume 9.6 fL (9.4-12.4); Platelet Count 183 K/uL (130-400); RDW Coefficient of Variation 16.2 % (11.5-14.5); RDW Standard Deviation 50.8 fL (36.4-46.3); Red Blood Count 4.35 M/uL (4.70-6.10); White Blood Count 26.89 K/ul (4.8-10.8)
[2024-01-30 06:44] LABS: Anion Gap 6 (3-11); BUN Creatinine Ratio 16.6 (10-20); Blood Urea Nitrogen 24 mg/dl (6-23); Calcium 8.9 mg/dl (8.6-10.3); Carbon Dioxide 26 mmol/L (21-32); Chloride 106 mmol/L (98-107); Est GFR (Non-African American) 53.5 ml/min; Glucose 110 mg/dl (70-99(Fasting)); Sodium 138 mmol/L (136-145)
[2024-01-30 06:54] LABS: Basophils # (auto) 0.05 K/uL (0.00-0.20); Basophils % (auto) 0.2 %; Eosinophils # (auto) 0.28 K/uL (0.00-0.50); Immature Granulocytes # (auto) 0.06 K/uL (0.01-0.20); Immature Granulocytes % (auto) 0.2 %; Lymphocytes % (auto) 81.8 %; Monocytes % (auto) 2.6 %; Neutrophils % (auto) 14.2 %; Polychromasia 1+
--- NOTE | 2024-01-30 08:07 | Urology Progress Note ---
Date of Service January 30, 2024 Assessment & Plan (1) Gross hematuria: Plan 58 yo/M who was a direct admission from [place] ED for management of gross hematuria. - Pt is afebrile and hemodynamically stable. - Labs today show hemoglobin 11.5 and creatinine 1.45 - He is on IV Ceftriaxone. - Urine cleared yesterday after manual irrigation/clot evacuation at bedside. He has not required hand irrigation since then. - He continues on CBI slow drip - urine is pink tinged without clot. - Will clamp CBI this morning and monitor, nursing aware. - OK to hand irrigate as needed for clots, retention, suprapubic pain. - No plan for surgical intervention. OK for diet. - Continue antibiotics and supportive care. - Urology will follow. - Patient reassessed. - Urine remains pink-tinged off CBI. - Will continue to monitor off CBI. - Okay to hand irrigate as needed for clots, retention, suprapubic pain. - Urology to follow Admission and Anticipated Discharge Date Admission Date: January 29, 2024 Subjective Pt seen at bedside this AM. Awake, resting in bed on arrival. No acute distress. Has not required manual irrigation of the catheter since yesterday. Osullivan draining pink tinged urine with CBI on slow drip. No suprapubic pain or pressure at present. Denies f/c/n/v. Review of Systems Constitutional: as per Subjective / HPI Gastrointestinal: as per Subjective / HPI Genitourinary: + as per Subjective / HPI Physical Exam Constitutional: no acute distress Respiratory: no respiratory distress and no labored breathing Neurologic: moves all extremities and awake Psychiatric: A+Ox3, euthymic affect Genitourinary: Osullivan intact and draining pink tinged urine with CBI on slow drip Results & Data Vital Signs (Past 12 Hours) Vital Signs Temp Pulse Resp BP Pulse Ox O2 Del Method 01/30/24 07:00 36.4 C L 71 16 131/79 96 Room Air 01/29/24 20:13 36.4 C L 90 20 138/80 98 Room Air PG Care Time/CCT Total # of Minutes Spent Total Time Spent with Patient: Total time spent is greater than 50% in coordination of care (as documented) at patient's floor/unit and/or counseling patient: Coding Level of Care Code 71698 SUB INP/OBS CARE 2/35MIN Diagnoses Gross hematuria R31.0
[2024-01-30] MEDS: oxyBUTYnin chloride 5 MG TAB PO PRN (12:10)
[2024-01-30] MEDS: HYDROmorphone INJ 0.5 MG/0.5 ML SYR IV PRN (14:47)
--- NOTE | 2024-01-30 16:44 | Hospitalist Progress Note ---
Date of Service January 30, 2024 Assessment & Plan (1) Gross hematuria: Plan: -Urology consult continue continuous bladder irrigation no urgent surgical intervention dc CBI, manual flush for obstruction -Continue CTX 2g q24h Likely dc tomorrow Admission and Anticipated Discharge Date Admission Date: January 29, 2024 Supervising Physician Co-Signing Physician Notes Attending Physician Supervision Note: I independently interviewed and examined the patient and verified the smith history and physical, reviewed labs and image studies and agree with findings and care plan noted above. 58y/o with CLL, bladder tumor s/p TURBT, and epithelioid hemangioendothelioma on admission from outside hospital for gross hematuria with clots. - off CBI - monitor overnight. - on IV ceftriaxone anticipate d/c home in am. Subjective Patient seen and evaluated at bedside this morning. No acute events overnight. Patient with justin on CBI. No acute complaints this am. Review of Systems Review of Systems: reviewed, per HPI Physical Exam Physical Exam: Constitutional: well-appearing, no acute distress HEENT: NCAT, no conjunctival injection CV: clinically well perfused Resp: no increased work of breathing GI: nondistended MSK: no gross deformities appreciated : justin in place Skin: no rash appreciated Neuro: alert, oriented, no focal neurologic deficit appreciated Results & Data Results & Data Vital Signs (Past 12 Hours) Vital Signs Temp Pulse Pulse Resp BP Pulse Ox O2 Del Method 01/30/24 12:46 36.7 C 100 H 18 114/80 95 Room Air 01/30/24 08:09 36.4 C L 74 18 128/84 94 Room Air 01/30/24 07:00 36.4 C L 71 16 131/79 96 Room Air Resident Activity Tracking Resident Involvement: Resident Care Provided Care Provided: Adult Hospital Medicine
[2024-01-30 20:15] VITALS: RESP 16
--- NOTE | 2024-01-31 06:13 | Billing Data ---
Date of Service January 31, 2024 Coding Level of Care Code 63767 INT INP/OBS CARE
[2024-01-31 06:39] LABS: Hematocrit (blood only) 37.5 % (42.0-52.0); Hemoglobin 11.7 g/dl (14.0-18.0); Mean Corpuscular Hemoglobin 26.1 pg (25.0-34.0); Mean Corpuscular Hgb Conc 31.2 g/dL (32.0-36.0); Mean Corpuscular Volume 83.7 fL (80.0-100.0); Mean Platelet Volume 9.4 fL (9.4-12.4); Platelet Count 183 K/uL (130-400); RDW Coefficient of Variation 15.9 % (11.5-14.5); RDW Standard Deviation 48.2 fL (36.4-46.3); Red Blood Count 4.48 M/uL (4.70-6.10); White Blood Count 26.97 K/ul (4.8-10.8)
[2024-01-31 07:05] LABS: Anion Gap 7 (3-11); BUN Creatinine Ratio 19.7 (10-20); Blood Urea Nitrogen 25 mg/dl (6-23); Calcium 8.9 mg/dl (8.6-10.3); Carbon Dioxide 24 mmol/L (21-32); Chloride 106 mmol/L (98-107); Est GFR (African American) 72.7 ml/min; Est GFR (Non-African American) 62.7 ml/min; Glucose 114 mg/dl (70-99(Fasting)); Potassium 4.5 mmol/L (3.5-5.1); Sodium 137 mmol/L (136-145)
[2024-01-31 07:09] VITALS: BP 133/81; PULSE 72; TEMP 97.9; O2SAT 96
[2024-01-31 07:12] LABS: Basophils # (auto) 0.05 K/uL (0.00-0.20); Basophils % (auto) 0.2 %; Eosinophils # (auto) 0.36 K/uL (0.00-0.50); Eosinophils % (auto) 1.3 %; Immature Granulocytes # (auto) 0.05 K/uL (0.01-0.20); Immature Granulocytes % (auto) 0.2 %; Lymphocytes % (auto) 80.8 %; Monocytes # (auto) 0.66 K/uL (0.11-0.59); Monocytes % (auto) 2.4 %; Neutrophils # (auto) 4.05 K/uL (1.40-6.50); Neutrophils % (auto) 15.1 %; Polychromasia 1+; Smudge Cells Present
[2024-01-31] MEDS: ACETAMINOPHEN 500 MG TAB PO PRN (08:28)
--- NOTE | 2024-01-31 09:03 | Urology Progress Note ---
Date of Service January 31, 2024 Assessment & Plan (1) Hematuria: Plan: Hematuria has resolved at this point. We will plan on voiding trial/catheter removal. If he continues to do well, I think it would be reasonable for discharge home from the urology perspective. Would be reasonable to send him on a couple days of empiric antibiotics given recent instrumentation. Admission and Anticipated Discharge Date Admission Date: January 29, 2024 Subjective Feeling well, no fevers chills No issues with catheter draining overnight although has passed a couple small clots Catheter clear this morning Hemoglobin stable (11.7), creatinine decreased today (1.27) Physical Exam Physical Exam: Seated at the bedside, NAD Genitourinary: Osullivan catheter draining clear urine without CBI Results & Data Vital Signs (Past 12 Hours) Vital Signs Temp Pulse Resp BP Pulse Ox O2 Del Method 01/31/24 07:03 36.6 C 72 16 133/81 96 Room Air PG Care Time/CCT Total # of Minutes Spent Total Time Spent with Patient: Total time spent is greater than 50% in coordination of care (as documented) at patient's floor/unit and/or counseling patient: Coding Level of Care Code 35106 SUB INP/OBS CARE 1/25MIN Diagnoses Hematuria R31.9
--- NOTE | 2024-01-31 11:43 | Discharge Summary ---
Date of Service January 31, 2024 Admission HPI Per Admitting Provider Jovan is a 58-year-old man with history of multiple bladder lesions s/p resection who presents via direct admission from [place] ED for management of gross hematuria. Already discussed with Dr. Isidro, who recommended direct admission. Patient has catheter in place + CBI. Hematuria started 2 days ago, with occasional clots. He initially attempted to go to work with catheter in place. However, he continued to pass more clots at work and eventually became occluded, which caused him severe pain that he localizes to the pubic area. Presented to ED at [place] yesterday for evaluation they replaced 18 Lithuanian catheter with 24 Lithuanian catheter, after discussing with Dr. Isidro. Patient was then transferred to [facility] for continued management. At present, patient is voiding well, and pain-free. He denies fever, chills, headache, shortness of breath, chest pain, nausea, vomiting, abdominal pain, flank pain, back pain, or pain with urination. Admission Exam Per Admitting Provider General: no acute distress, speaking in full sentences Resp: good inspiratory effort, no labored breathing HEENT: conjunctivae appear clear, no audible congestion, no swelling noted face or lips Skin: skin appears dry, normal coloration, no rash visible on exposed skin areas Neuro: alert and oriented x3, no focal deficits appreciated Psych: euthymic affect, pleasant and interactive, logical thought process Principal Diagnosis Hematuria Discharge Exam Constitutional: well-appearing, no acute distress HEENT: NCAT, no conjunctival injection CV: clinically well perfused Resp: no increased work of breathing GI: nondistended MSK: no gross deformities appreciated : justin removed Skin: no rash appreciated Neuro: alert, oriented, no focal neurologic deficit appreciated Discharge Data Allergies Allergy/AdvReac Type Severity Reaction Status Date / Time codeine Allergy Hives Verified 01/01/24 22:43 Consultations 01/29/24 06:00 Consult Urology Routine Hospital Course (1) Gross hematuria: -Urology consult patient initially on continuous bladder irrigation no urgent surgical intervention warranted manual irrigation for evacuation of blood clots justin catheter removed on date of discharge and voiding trial passed -Will continue patient on 5 day course of cefdinir due to instrumentation per urology recommendation -Follow up with urology outpatient -Continue to hold ASA, Plavix in setting of hematuria, restart once cleared by urology to do so Total Time Total Time Spent Total Time Spent (In Minutes): see attending documentation Discharge Plan Discharge Items Patient Disposition: Home - Self-Care Reason For Visit: GROSS HEMATURIA Discharge Diagnosis: Hematuria Activity: Resume your previous activity Non-emergency contact: Primary Care Provider and Urologist Call non-emergency contact if: you have any medication questions and your symptoms worsen Follow-up/Referrals: Stanford Farnsworth PA-C [Primary Care Provider] - Randy Isidro MD [Physician] - Diet: Heart Healthy Addtl Attending Provider Instructions: You were admitted to the hospital for hematuria. You were treated with a catheter to help irrigate your bladder and evacuate blood clots that were present. Urology did not feel that you required any urgent surgical intervention for the blood in your urine. Your blood thinners were held and should continue to be held at discharge until deemed safe to restart by urology. You should follow up with urology within one week. If you have return of large amounts of urine you should call them sooner or come back to the hospital. Your labs remained stable throughout your stay. With the exception of your blood thinners, you should continue to take all your regular medications when you are discharged from the hospital. A discharge summary will be sent to your primary care physician to ensure continuity of care. Please bring this discharge summary with you to your next office appointment so that your provider can review it at that time. Follow-up appointments: Make a follow-up appointment with your PCP within the next week. It is very important that you follow up with them shortly after discharge from the hosp ital. The urology office should reach out to you to schedule a follow up appointment. If you do not hear from them early next week you should call the office at . Keep all your follow-up appointments as already scheduled. If you cannot make an appointment, notify your provider. Medications: Your medication list has been reviewed and reconciled upon discharge to ensure accuracy and continuity of care. An updated list of all your medications is included with your hospital discharge paperwork. Please review this list closely, and make note of any changes. Take your medications as instructed; do not skip a dose of your medicines. Make sure all of your doctors know every medicine you are taking (including jozk-iph-vnebmmd medicines, vitamins, and supplements). Call your primary care provider before taking any new medicines (including naym-bar-ahifunv medicines, vitamins, and supplements), because some of these may interact with your current medications, or may make your symptoms worse. Tell your primary care provider if you cannot afford your medications. CONTACT YOUR PRIMARY CARE PROVIDER if you experience any of the following: Increased difficulty urinating Return of large amounts of blood in your urine Difficulty following your treatment plan, or difficulty taking medications CALL 911 OR GO TO THE EMERGENCY DEPARTMENT if you experience any of the f ollowing: Sudden, severe abdominal pain or nausea/vomiting Severe chest pain, or chest pain that radiates (moves) to your jaw or arm Sudden, severe shortness of breath or difficulty breathing Thank you for allowing us to participate in your care. Pending Studies at Discharge: No Stand-Alone Forms: My [facility] Medications and DC Order Prescriptions: New cefdinir 300 mg capsule 300 mg PO BID 5 Days Qty: 10 0RF Continued sirolimus [Rapamune] 1 mg tablet 1 mg PO BID gabapentin 300 mg tablet 300 mg PO BID Jardiance 10 mg tablet 10 mg PO HS spironolactone 25 mg tablet 25 mg PO HS furosemide [Lasix] 40 mg tablet 40 mg PO QAM fexofenadine [Radhika Allergy] 180 mg tablet 180 mg PO QAM Ozempic 1 mg/dose (4 mg/3 mL) pen injector 1 mg subcut Q7D Patient Comments: sundays Rx Instructions: Friday atorvastatin [Lipitor] 20 mg tablet 40 mg PO HS magnesium 500 mg Tablet 500 mg PO QAM metoprolol succinate 25 mg tablet extended release 24 hr 25 mg PO QAM cholecalciferol (vitamin D3) [Vitamin D3] 50 mcg (2,000 unit) Capsule 50 mcg PO QAM phenazopyridine [Pyridium] 200 mg tablet 200 mg PO Q8H PRN (Reason: pain) Qty: 10 0RF tamsulosin 0.4 mg capsule 0.4 mg PO HS Qty: 30 0RF Discontinued clopidogrel [Plavix] 75 mg tablet 75 mg PO QAM aspirin 81 mg capsule 81 mg PO QAM oxycodone-acetaminophen [Percocet] 7.5-325 mg tablet 1 tab PO Q8H PRN (Reason: pain) Qty: 7 0RF Discharge Orders: Discharge Order (Routine); Ordered 01/31/24 Ordered By: Jose Alonzo Admission Data Admit Date/Time: 01/29/24 05:44 Attending Provider: Ledy Hill Admit Provider: Albert Lange Primary Care Provider: Stanford Farnsworth Other Providers: Randy Isidro; Marce Sewell Other Interventions: Discharge Summary Assessment (RN) Last Done: 01/31/24 11:54 Supervising Physician Co-Signing Physician Notes Attending Physician Supervision Note: I independently interviewed and examined the patient and verified the smith history and physical, reviewed labs and image studies and agree with findings and care plan noted above. 58y/o with CAD and stent placement, CLL, bladder tumor s/p TURBT, and epithelioid hemangioendothelioma on admission from outside hospital for gross hematuria with clots. Hematuria - s/p recent procedure - 12/22/23 - Cystoscopy with Transurethral Resection of the Bladder Tumor, Medium; Biopsies of the Bladder; Bladder Fulguration x 10; Urethral Dilation; Fulguration of the prostate/prostatic varicosities including the bladder neck. Per urology - bleeding likely from the bladder tumor resection site. -Placed on CBI. Urine cleared. -Passed voiding trial after removal of justin. -Continue to hold antiplatelets - Urology and cardiology to addresses resuming it as outpatient. -Finish antibiotic regimen with cefdinir given recent instrumentation. CAD- DAPT to be resumed per urology/cardiology. HFpEF - lasix and spironolactone were held. Resumed on discharge. Resident Activity Tracking Resident Involvement: Resident Care Provided Care Provided: Adult Hospital Medicine
== END 2024-01-31 12:26 | disposition home or self-care (01) | DRG 920 ==
LOC: 3E 05:44 → SUATTDRO 05:44